=== PATIENT | male | born 1940 | race Caucasian/White ===

== ENCOUNTER 2016-06-26 08:09 | Emergency (ER) | payer MEDICARE, BC ==
[2016-06-26 08:12] VITALS: BP 153/72; PULSE 75; RESP 16; TEMP 97.6
--- NOTE | 2016-06-26 08:53 | XR ---
EXAMINATION TYPE: XR knee complete RT DATE OF EXAM: 06/26/2016 8:49 AM CLINICAL HISTORY: Right knee pain and swelling, recent fall injury. TECHNIQUE: Three views of the right knee are obtained. COMPARISON: None. FINDINGS: There is no acute fracture/dislocation evident in right knee. Asymmetric mild to moderate joint space loss medial tibiofemoral compartment is seen. There is mild spurring patellofemoral janis rtment. There is slightly more prominent spurs anteriorly in the patella. Vascular calcification in t he posterior popliteal vessels is noted. A fabella is seen. IMPRESSION: There is no acute fracture or dislocation in the right knee.
--- NOTE | 2016-06-26 09:15 | ED ---
Lower Extremity Injury HPI - General Chief Complaint: Extremity Injury, Lower Stated Complaint: right knee pain Time Seen by Provider: 06/26/16 08:32 Source: patient, RN notes reviewed Mode of arrival: ambulatory Limitations: no limitations - History of Present Illness Initial Comments: 76-year-old male presents emergency Department with chief complaint of right knee pain. Patient states that he thought he injured a few weeks ago while cleaning the toe. Patient states she's had ongoing medial knee pain. Patient states that she is swollen. Patient has not seen anybody for this. He states he is able to family but states that he has pain when he flexes and extends it. Patient states there is no clicking popping or any giving out of his knee. Patient denies any paresthesias. Patient denies any previous knee surgeries. Patient denies any blood thinners. Patient states is no bruising noted. - Related Data Home Medications Medication Instructions Recorded Confirmed Aspirin [Adult Low Dose Aspirin EC] 81 mg PO DAILY 08/27/15 06/26/16 Enalapril [Vasotec] 10 mg PO BID 08/27/15 06/26/16 Atorvastatin [Lipitor] 20 mg PO DAILY 06/26/16 06/26/16 Cholecalciferol [Vitamin D3] 1,000 unit PO DAILY 06/26/16 06/26/16 Citalopram Hydrobromide [CeleXA] 20 mg PO DAILY 06/26/16 06/26/16 Gabapentin [Neurontin] 300 mg PO TID 06/26/16 06/26/16 Nortriptyline [Pamelor] 50 mg PO HS 06/26/16 06/26/16 Allergies Allergy/AdvReac Type Severity Reaction Status Date / Time No Known Allergies Allergy Verified 06/26/16 08:29 Review of Systems ROS Statement: Those systems with pertinent positive or pertinent negative responses have been documented in the HPI. ROS Other: All systems not noted in ROS Statement are negative. Past Medical History Past Medical History: Hyperlipidemia, Hypertension Additional Past Medical History / Comment(s): hydrocephaly History of Any Multi-Drug Resistant Organisms: None Reported Additional Past Surgical History / Comment(s): brain sx Past Psychological History: No Psychological Hx Reported Smoking Status: Former smoker Past Alcohol Use History: None Reported Past Drug Use History: None Reported General Exam Limitations: no limitations General appearance: alert, in no apparent distress Respiratory exam: Present: normal lung sounds bilaterally. Absent: respiratory distress, wheezes, rales, rhonchi, stridor Cardiovascular Exam: Present: regular rate, normal rhythm, normal heart sounds. Absent: systolic murmur, diastolic murmur, rubs, gallop, clicks Extremities exam: Present: other (Right knee there is pain with full flexion and extension there is no laxity noted negative anterior posterior drawer there is moderate right knee swelling noted, there is tenderness on the medial aspect) Skin exam: Present: warm, dry, intact, normal color. Absent: rash Course Vital Signs 06/26/16 08:10 Temperature 97.6 F Pulse Rate 75 Respiratory 16 Rate Blood Pressure 153/72 O2 Sat by Pulse 95 Oximetry Medical Decision Making - Medical Decision Making 76-year-old male presented for right knee pain. Patient does not have any acute injuries noted to the osseus lesions on x-ray. Patient does have some abnormal joint space loss in the medial aspect maybe contribute to his symptoms. Patient will be referred to on-call orthopedics Dr. cMkeon for further care. Patient agrees to plan. Disposition Clinical Impression: Right knee pain Disposition: HOME SELF-CARE Condition: Stable Instructions: Knee Pain (ED), Knee Sprain (ED) Additional Instructions: Please return to the Emergency Department if symptoms worsen or any other concerns. Referrals: Filipe Beckwith MD [Primary Care Provider] - 1-2 days Aly Mckeon MD [Medical Doctor] - 1-2 days Time of Disposition: 09:14
== END 2016-06-26 09:18 | disposition home or self-care (01) ==
LOC: EC 08:09
DX: S83.91XA Sprain of unspecified site of right knee, initial encounter (principal); E78.5 Hyperlipidemia, unspecified; I10 Essential (primary) hypertension; Z87.891 Personal history of nicotine dependence; Z79.82 Long term (current) use of aspirin; Z79.899 Other long term (current) drug therapy; X50.9XXA Other and unspecified overexertion or strenuous movements or postures, initial encounter; Y93.89 Activity, other specified
CPT/HCPCS: 99283

== ENCOUNTER → 2016-06-26 | Outpatient (CLI) | payer MEDICARE, BC ==
[2016-06-26 08:16] LABS: CH 32.5; HCT 38.3 % (39.0-53.0); HDW 2.96; HGB 12.5 gm/dL (13.0-17.5); MCH 31.5 pg (25.0-35.0); MCHC 32.7 g/dL (31.0-37.0); MCV 96.3 fL (80.0-100.0); Mean Platelet Volume 7.3; RBC 3.98 m/uL (4.30-5.90); RDW 13.7 % (11.5-15.5); WBC 7.9 k/uL (3.8-10.6)
[2016-06-26 08:53] LABS: Anion Gap 14 mmol/L; Blood Urea Nitrogen 19 mg/dL (9-20); Carbon Dioxide 25 mmol/L (22-30); Chloride 104 mmol/L (98-107); Non-African American GFR(MDRD) >60 (>60 ml/min/1.73 sqM); Potassium 4.9 mmol/L (3.5-5.1); Sodium 143 mmol/L (137-145)
== END | disposition home or self-care (01) ==
LOC: LABPAT 07:46
PROVIDERS: ATTEND Internal Medicine Interventional Cardiology
DX: Z01.812 Encounter for preprocedural laboratory examination (principal); I25.10 Atherosclerotic heart disease of native coronary artery without angina pectoris
CPT/HCPCS: 80051; 82565; 84520; 85027

== ENCOUNTER 2016-07-03 06:24 | Day surgery (SDC) | payer MEDICARE, BC ==
[~2016-07-03 06:24] MED LIST: ALPRAZolam 0.25 MG TAB PO PRN; ALPRAZolam 0.5 MG TAB PO PRN; ASPIRIN 325 MG TAB PO STA; ATORVASTATIN 80 MG TAB PO STA; NITROGLYCERIN SL TABS 0.4 MG TAB SUBLINGUAL PRN; SODIUM CHLORIDE 0.9% 1,000 ML in EMPTY BAG 1 BAG IV ONE
[2016-07-03] MEDS ORDERED: LIDOCAINE 1% INJ 10MG/ML (20 ML MDV) ONE (07:11)
[2016-07-03] MEDS ORDERED: LIDOCAINE 2% INJ 20 MG/ML (20 ML MDV) ONE (07:21)
[2016-07-03] MEDS ORDERED: VERAPAMIL 2.5 MG/ML 2 ML AMP ONE (07:22)
[2016-07-03] MEDS ORDERED: SODIUM CHLORIDE 0.9% (PF) 10 ML VIAL ONE (07:22)
[2016-07-03] MEDS ORDERED: diphenhydrAMINE 50 MG/ML 1 ML VIAL ONE (07:33)
[2016-07-03] MEDS ORDERED: fentaNYL (PF) 50 MCG/ML 2 ML AMP ONE (07:33)
[2016-07-03] MEDS ORDERED: diphenhydrAMINE 50 MG/ML 1 ML VIAL IVP ONE (07:35)
[2016-07-03] MEDS ORDERED: fentaNYL (PF) 50 MCG/ML 2 ML AMP IV ONE (07:37)
[2016-07-03] MEDS ORDERED: HEPARIN SODIUM 1,000 UNIT/ML VIAL ONE (07:41)
[2016-07-03] MEDS ORDERED: LIDOCAINE 2% INJ 20 MG/ML SQ ONE (07:41)
[2016-07-03] MEDS ORDERED: VERAPAMIL SYRINGE (5 MG/10 ML) INTRAARTER ONE (07:43)
[2016-07-03] MEDS ORDERED: NITROGLYCERIN 1000MCG/10ML SYRINGE INTRAARTER ONE (07:59)
[2016-07-03] MEDS ORDERED: ADENOSINE 90 MG in SODIUM CHLORIDE 0.9% 60 ML IVP ONE (08:06)
[2016-07-03] MEDS ORDERED: BIVALIRUDIN BOLUS 250 MG/50 ML IV ONE (08:09)
[2016-07-03] MEDS ORDERED: BIVALIRUDIN 250 MG in SODIUM CHLORIDE 0.9% 50 ML IV ONE (08:09)
[2016-07-03] MEDS ORDERED: CLOPIDOGREL 75 MG TAB PO ONE (08:10)
[2016-07-03] MEDS ORDERED: CLOPIDOGREL 75 MG TAB ONE ×2 (08:11→08:12)
[2016-07-03] MEDS ORDERED: IOHEXOL 350 MG/ML 100 ML BOTTLE INJ ONE (08:42)
[2016-07-03] MEDS ORDERED: RX INFO: IV CONTRAST WAS GIVEN 1 EACH MISC MISCELLANE PRN (08:50)
[2016-07-03] MEDS ORDERED: ATROPINE SULFATE 0.1 MG/ML 10ML SYRINGE IV PRN (08:50)
[2016-07-03] MEDS ORDERED: NITROGLYCERIN SL TABS 0.4 MG TAB SUBLINGUAL PRN (08:50)
[2016-07-03] MEDS ORDERED: MAG HYDROX/AL HYDROX/SIMETH 30 ML CUP PO PRN (08:50)
[2016-07-03] MEDS ORDERED: SODIUM CHLORIDE 0.9% 1,000 ML IV SCH (09:00)
[2016-07-03] MEDS ORDERED: NAPROXEN 250 MG TAB PO PRN (09:17)
[2016-07-03] MEDS: LISINOPRIL 20 MG TAB PO SCH (13:14)
[2016-07-03] MEDS: CHOLECALCIFEROL 1,000 UNIT TAB PO SCH (13:15)
[2016-07-03] MEDS: CITALOPRAM HYDROBROMIDE 20 MG TAB PO SCH (13:15)
[2016-07-03 14:48] VITALS: BMI 29.9
--- NOTE | 2016-07-03 16:44 | PTCA ---
DATE OF SERVICE: Mr. Wick is a 76-year-old male with known history of coronary artery disease, history of hypertension, hyperlipidemia, who recently had an abnormal myocardial perfusion imaging. His cardiac catheterization showed a borderline significant lesion in the proximal LAD. In view of that, recommendation made regarding fractional flow reserve measurement and depending on that, further recommendation will be made. Those findings and recommendations were discussed with the patient and he is in full understanding and agreement. PROCEDURE: A 6 Fijian 3-1/2 Bend left Richa guiding catheter was introduced into the system. After cannulating the left main, a Doppler flow wire was introduced into the LAD, positioned distally. Following that infusion of Adenosine intravenously per protocol was performed with a fractional flow reserve of 77%. At that point a 3.0 x 18 mm Xience Alpine stent was advanced, deployed and was dilated to 16 atmospheres. Following that, the balloon was removed and a 3.5 x 12 mm NC Euphora balloon was advanced and one inflation in the proximal segment of the stent at 14 atmospheres was done. After the last inflation, after appropriate wait, the balloon and the guidewire were withdrawn back in the guiding catheter. Images were obtained and repeated. Those images reveal stable successful stenting. At that point, the guiding catheter, the balloon and the guidewire were removed. The sheath was removed. Hemostasis was obtained with deployment of a TR band. There were no immediate complications. Patient is returned to his room in stable condition. Of note, the patient received Angiomax per protocol as well as oral loading dose of Clopidogrel. He has no chest discomfort with inflations. RESULT: Successful stenting of the proximal LAD in the long segments with reduction in stenosis from 60 to 70% with a hemodynamically significant fractional flow reserve to 0%. RECOMMENDATIONS: Patient will be continued on aspirin and Plavix and CLYDE inhibitor and statin. The importance of dual antiplatelet treatment were discussed with the patient and his family who is in full understanding and agreement.
--- NOTE | 2016-07-03 16:46 | LTR ---
July 03, 2016 RE: ShamikaHerrera Dear Dr. Beckwith: I had the pleasure of performing cardiac catheterization and coronary angioplasty and stenting on Mr. Wick at [facility] on the june and a full copy of procedure note will be forwarded to you. In brief, he was found to have a borderline significant lesion in the proximal left anterior descending, the fractional flow reserve measurement showed hemodynamically significant lesion. In view of that, he received a drug-eluting stent in that segment. I am hopeful that this procedure will stabilize his status. Thank you again for allowing me to participate in his care. Please feel to call for any questions. Sincerely, JO ANN RAYMUNDO MD
--- NOTE | 2016-07-03 17:45 | CC ---
Mr. Wick is a 76-year-old man with known history of hypertension, hyperlipidemia, who has been complaining of symptoms of dyspnea on exertion, had a stress test that showed evidence of defect with impairment of left ventricular systolic function. In view of that, recommendation was made regarding cardiac catheterization. The procedure as well as risks and complications were discussed with the patient, who is in full understanding and agreement. PROCEDURE: Patient was brought to the cook house laborer in fasting semi-sedated state after receiving fentanyl and Benadryl. He was draped and prepped in conventional fashion. Using Xylocaine anesthesia as well as Seldinger technique, a 6 Malagasy sheath was introduced in the right radial artery. Selective right and left coronary angiography was performed using 5 Malagasy 3-1/2 Bend right Richa catheters. Multiple views of the coronary arteries, including hemiaxial views, were obtained. Following that, catheter was removed. Images were reviewed. Of note, the patient received 5000 units of intravenous heparin at the start of the procedure as well as intra-arterial verapamil. FINDINGS: Fluoroscopy: There is severe calcification involving the left anterior descending artery and diagonal branch and to a lesser extent the right coronary artery. Left main: This is a large-size vessel bifurcating into left circumflex, left anterior descending artery, left main coronary artery. Has no evidence of high-grade stenosis. Left anterior descending artery: This is a large-size vessel reaching toward the apex with a wraparound apex segment, giving rise to a large diagonal branch proximally. The vessel is heavily calcified proximally. The takeoff of the diagonal branch has a 60% to 70% stenosis. The LAD has about a 60% lesion that is calcified. The rest of the vessel has mild intimal disease without any high-grade stenosis. Left circumflex: This is a nondominant vessel, giving rise to 2 obtuse marginal branches. The second obtuse marginal branch in the mid segment has an eccentric 60% to 70% plaque. The ostium of the left circumflex has a plaque as well. Right coronary artery: This is a large dominant vessel with a superior takeoff, calcified in the mid segment. In the proximal segment it has a 40% plaque, distally bifurcating into PDA and posterolateral segment branches. There is no high-grade stenosis in the distal segment. LEFT VENTRICULOGRAM: Left ventriculogram was not performed. CONCLUSION: 1. Heavily calcified left anterior descending artery proximally with moderate the patient significant plaque. 2. Obstructive disease involving the first diagonal branch. 3. Evidence of moderate to significant disease in the second obtuse marginal branch. 4. Mild disease in the left anterior descending artery. 5. Calcified coronary arteries. RECOMMENDATIONS: I have recommended proceeding with fractional flow reserve evaluation of the LAD and depending on that, further recommendation will be made. Those findings and recommendations were discussed with the patient and he is in full understanding and agreement.
[2016-07-03] MEDS ORDERED: NORTRIPTYLINE 25 MG CAP PO SCH (21:00)
[2016-07-03] MEDS ORDERED: ZOLPIDEM 5 MG TAB PO PRN (21:00)
[2016-07-03 23:02] VITALS: TEMP 97.8
[2016-07-04 06:26] LABS: Anion Gap 9 mmol/L; Blood Urea Nitrogen 21 mg/dL (9-20); Calcium 9.4 mg/dL (8.4-10.2); Carbon Dioxide 29 mmol/L (22-30); Chloride 103 mmol/L (98-107); Glucose 92 mg/dL (74-99); Non-African American GFR(MDRD) 54 (>60 ml/min/1.73 sqM); Potassium 4.7 mmol/L (3.5-5.1); Sodium 141 mmol/L (137-145)
[2016-07-04] MEDS: CITALOPRAM HYDROBROMIDE 20 MG TAB PO SCH (08:11)
[2016-07-04] MEDS: LISINOPRIL 20 MG TAB PO SCH (08:11)
[2016-07-04] MEDS: CHOLECALCIFEROL 1,000 UNIT TAB PO SCH (08:12)
[2016-07-04 08:43] VITALS: BP 149/75; PULSE 88; RESP 18
[2016-07-04] MEDS ORDERED: ASPIRIN 325 MG TAB PO SCH (09:00)
[2016-07-04] MEDS ORDERED: ATORVASTATIN 40 MG TAB PO SCH (09:00)
[2016-07-04] MEDS ORDERED: CLOPIDOGREL 75 MG TAB PO SCH (09:00)
--- NOTE | 2016-07-04 09:24 | PN ---
Mr. Wick is a 76-year-old male with a known history of coronary artery disease who had an abnormal myocardial perfusion imaging underwent a cardiac catheterization that revealed a borderline significant lesion in the LAD. Underwent fractional flow reserve measurement that was significant and stenting of the LAD. He is doing well this morning, ambulating without difficulty. Denying any chest pain. No dizziness. No palpitation. No nausea. Continues to be on aspirin once a day, Lipitor 40 mg daily, Plavix 75 mg daily, lisinopril 40 mg daily. PHYSICAL EXAMINATION: Blood pressure running in the 130s to 150s with the heart rate in the70s. LUNGS: Clear. HEART: Regular rate and rhythm. S1, S2, no S3 with systolic ejection murmur 2/6 heard at the base. No diastolic murmur. No rub. ABDOMEN: Soft, nontender. EXTREMITIES: No edema. Right radial pulse intact. EKG revealed sinus mechanism with left bundle branch block. BUN and creatinine 21 and 1.28. IMPRESSION: 1. Status post coronary angiography and stenting of the left anterior descending artery. 2. Hypertension. 3. Left bundle branch block. 4. Hyperlipidemia. RECOMMENDATIONS: Patient will be discharged home today and followed as an outpatient.
== END 2016-07-04 09:15 | disposition home or self-care (01) ==
LOC: CATHCVL 06:24 → 6SEL 08:36 → CATHCVL 07-04 09:15
PROVIDERS: ATTEND Internal Medicine Interventional Cardiology
DX: I25.10 Atherosclerotic heart disease of native coronary artery without angina pectoris (principal); I25.84 Coronary atherosclerosis due to calcified coronary lesion; I44.7 Left bundle-branch block, unspecified; I10 Essential (primary) hypertension; E78.2 Mixed hyperlipidemia; I73.9 Peripheral vascular disease, unspecified; Z82.49 Family history of ischemic heart disease and other diseases of the circulatory system; Z79.82 Long term (current) use of aspirin; Z79.899 Other long term (current) drug therapy
CPT/HCPCS: 93571; 93454; 80048; 99152; 99153 ×3; C9600; C1887; C1725 ×2; C1769; C1874; J2001; J1200; Q9967; J3010; J0583; J0153; J1644

== ENCOUNTER → 2017-10-02 | Outpatient (CLI) | payer MEDICARE, BC ==
--- NOTE | 2017-10-02 15:26 | ECHOF ---
Referral Reason:I35.0 Nonrheumatic aortic (valve) stenosis MEASUREMENTS -------- HEIGHT: 182.9 cm WEIGHT: 97.5 kg BP: RVIDd: 3.0 cm (< 3.3) IVSd: 1.2 cm (0.6 - 1.1) LVIDd: 4.4 cm (3.9 - 5.3) LVPWd: 1.1 cm (0.6 - 1.1) IVSs: 1.4 cm LVIDs: 4.3 cm LVPWs: 1.3 cm LAESV Index (A-L): 39.27 ml/m Ao Diam: 3.0 cm (2.0 - 3.7) AV Cusp: 1.2 cm (1.5 - 2.6) LA Diam: 4.3 cm (2.7 - 3.8) MV EXCURSION: 15.618 mm (> 18.000) MV EF SLOPE: 81 mm/s (70 - 150) EPSS: 0.9 cm MV E Joaquin: 0.55 m/s MV DecT: 262 ms MV A Joaquin: 0.73 m/s MV E/A Ratio: 0.76 AV maxP.49 mmHg AV meanP.07 mmHg RAP: 5.00 mmHg RVSP: 35.32 mmHg FINDINGS -------- Sinus rhythm with extra systolic beats. This was a technically adequate study. The left ventricular size is normal. There is mild concentric left ventricular hypertrophy. Overa ll left ventricular systolic function is normal with, an EF between 55 - 60 %. The right ventricle is normal in size. The left atrium is mildly dilated. LA is moderately dilated 34-39 ml/m2 The right atrial size is normal. There is mild to moderate aortic valve sclerosis. There is moderate aortic stenosis present. Peak /mean gradient across the Aortic Valve is 37.49mmHg / 20.07mmHg. Mild mitral annular calcification present. Mild mitral regurgitation is present. Mild tricuspid regurgitation present. There is mild pulmonary hypertension. The right ventricular systolic pressure, as measured by Doppler, is 35.32mmHg. Trace/mild (physiologic) pulmonic regurgitation. The aortic root size is normal. There is no pericardial effusion. CONCLUSIONS -------- 1. The left ventricular size is normal. 2. There is mild concentric left ventricular hypertrophy. 3. Overall left ventricular systolic function is normal with, an EF between 55 - 60 %. 4. The left atrium is mildly dilated. 5. LA is moderately dilated 34-39 ml/m2 6. There is mild to moderate aortic valve sclerosis. 7. There is moderate aortic stenosis present. 8. Peak/mean gradient across the Aortic Valve is 37.49mmHg / 20.07mmHg. 9. Mild mitral annular calcification present. 10. Mild mitral regurgitation is present. 11. Mild tricuspid regurgitation present. 12. There is mild pulmonary hypertension. 13. The right ventricular systolic pressure, as measured by Doppler, is 35.32mmHg. 14. Trace/mild (physiologic) pulmonic regurgitation. 15. The aortic root size is normal. 16. There is no pericardial effusion. CLERICAL RECEPTIONIST: Stephany Garcia RDCS
== END ==
LOC: RADECHMAIN 13:05
PROVIDERS: ATTEND Internal Medicine
DX: I08.1 Rheumatic disorders of both mitral and tricuspid valves (principal); I27.20 Pulmonary hypertension, unspecified
CPT/HCPCS: 93306

== ENCOUNTER 2017-11-26 11:15 | Emergency (ER) | payer MEDICARE, BC ==
[2017-11-26 11:40] VITALS: BP 140/59; PULSE 56; RESP 18; TEMP 97.8
[2017-11-26] MEDS ORDERED: DIPH,PERTUS(ACELL)TETVAC-LF 0.5 ML VIAL IM ONE (12:06)
[2017-11-26] MEDS ORDERED: GELATIN SPONGE,ABSORB (SMALL) 1 EACH SPONGE TOPICAL STA (12:14)
--- NOTE | 2017-11-26 12:19 | ED ---
General Adult HPI - General Chief complaint: Wound/Laceration Stated complaint: Leg Lac Time Seen by Provider: 11/26/17 12:04 Source: patient, RN notes reviewed Mode of arrival: ambulatory Limitations: no limitations - History of Present Illness Initial comments: 89-year-old male presents to the emergency department for a chief complaint of scratch on left lower leg. Patient states he was scratching his leg when it started to bleed. Patient states he could not get it to stop bleeding. Patient denies any other injuries. Patient states he is taking Plavix. Patient denies any dizziness, shortness of breath, or chest pain. Patient states this happened about 2 hours ago. Patient has no other complaints at this time including shortness of breath, chest pain, abdominal pain, nausea or vomiting, headache, or visual changes. - Related Data Home Medications Medication Instructions Recorded Confirmed Aspirin [Adult Low Dose Aspirin EC] 81 mg PO DAILY 08/27/15 07/03/16 Cholecalciferol [Vitamin D3] 1,000 unit PO DAILY 06/26/16 07/03/16 Citalopram Hydrobromide [CeleXA] 20 mg PO DAILY 06/26/16 07/03/16 Nortriptyline [Pamelor] 50 mg PO HS 06/26/16 07/03/16 Naproxen Sodium [Aleve] 220 mg PO DAILY 07/01/16 07/03/16 Acetaminophen Tab [Tylenol Tab] 650 mg PO Q6H PRN 07/03/16 07/03/16 Previous Rx's Medication Instructions Recorded Atorvastatin [Lipitor] 40 mg PO DAILY #30 tab 07/03/16 Clopidogrel [Plavix] 75 mg PO DAILY #30 tab 07/03/16 Lisinopril [Zestril] 40 mg PO DAILY #30 tab 07/03/16 Nitroglycerin Sl Tabs [Nitrostat] 0.4 mg SUBLINGUAL Q5M PRN #25 tab 07/03/16 Allergies Allergy/AdvReac Type Severity Reaction Status Date / Time No Known Allergies Allergy Verified 07/01/16 13:25 Review of Systems ROS Statement: Those systems with pertinent positive or pertinent negative responses have been documented in the HPI. ROS Other: All systems not noted in ROS Statement are negative. Past Medical History Past Medical History: CVA/TIA, Hyperlipidemia, Hypertension Additional Past Medical History / Comment(s): hydrocephaly, TIA long time ago, leaky heart valve, poor circulation, swelling rt lower leg History of Any Multi-Drug Resistant Organisms: None Reported Additional Past Surgical History / Comment(s): brain surgery for hydrocephalus with shunt/ shunt later removed Past Anesthesia/Blood Transfusion Reactions: No Reported Reaction Past Psychological History: Depression Smoking Status: Former smoker Past Alcohol Use History: None Reported Past Drug Use History: None Reported - Past Family History Father Family Medical History: Cancer Additional Family Medical History / Comment(s): lung General Exam Limitations: no limitations General appearance: alert, in no apparent distress Head exam: Present: atraumatic, normocephalic, normal inspection Eye exam: Present: normal appearance ENT exam: Present: mucous membranes moist Neck exam: Present: normal inspection, full ROM. Absent: tenderness, meningismus Respiratory exam: Present: normal lung sounds bilaterally. Absent: respiratory distress, wheezes, rales, rhonchi, stridor Cardiovascular Exam: Present: regular rate, normal rhythm, normal heart sounds. Absent: systolic murmur, diastolic murmur, rubs, gallop, clicks Extremities exam: Present: full ROM (Full range of motion of the left lower extremity including ankle and knee.), normal capillary refill (Capillary refill less than 2 seconds and pedal pulse 2+ in the left lower extremity), other ( Sensation intact and left lower extremity. There is a 0.5 cm x 0.5 cm shallow avulsion of the epidermis over left amanda. Bleeding somewhat controlled at this point.). Absent: tenderness (No tenderness to the left lower extremity), calf tenderness (No tenderness in the left calf. Negative Homans sign.) Course Vital Signs 11/26/17 11:37 Temperature 97.8 F Pulse Rate 56 L Respiratory 18 Rate Blood Pressure 140/59 O2 Sat by Pulse 94 L Oximetry Medical Decision Making - Medical Decision Making 77-year-old male presents to the emergency department for a chief complaint of bleeding from the left lower extremity. Patient scratched himself and caused a small avulsion of the superficial skin about 0.5 cm x 0.5 cm. Patient has very minor bleeding. Patient takes Plavix. This happened about 2 hours ago. Vitals within normal limits. Patient has full range of motion and neurovascular intact in the left lower extremity. Gelfoam gauze and pressure wrapping was applied and bleeding is now controlled. Patient was educated to take dressing off tomorrow and let Gelfoam fall off on its own. He will monitor for signs of infection and return if these occur. He will return to the emergency department if he has any worsening symptoms. He will follow up with primary care in 1-2 days. Disposition Clinical Impression: Scratch of lower leg Disposition: HOME SELF-CARE Condition: Good Instructions: Laceration (ED) Additional Instructions: Please take dressing off tomorrow and let Gelfoam fall off on its own. Please monitor for signs of infection such as spreading redness, streaking redness, drainage, or fever and return if these occur. Otherwise follow-up with primary care in 1-2 days. Is patient prescribed a controlled substance at d/c from ED?: No Referrals: Filipe Beckwith MD [Primary Care Provider] - 1-2 days Time of Disposition: 12:50
== END 2017-11-26 13:18 | disposition home or self-care (01) ==
LOC: EC 11:15
DX: S81.802A Unspecified open wound, left lower leg, initial encounter (principal); F32.9 Major depressive disorder, single episode, unspecified; Z87.891 Personal history of nicotine dependence; Z79.1 Long term (current) use of non-steroidal anti-inflammatories (NSAID); Z79.02 Long term (current) use of antithrombotics/antiplatelets; Z79.82 Long term (current) use of aspirin; Z79.899 Other long term (current) drug therapy; Z86.79 Personal history of other diseases of the circulatory system; Z23 Encounter for immunization; X58.XXXA Exposure to other specified factors, initial encounter
CPT/HCPCS: 90471; 90715; 99282

== ENCOUNTER 2020-12-18 14:43 | Observation (INO) | payer MEDICARE, BC ==
[2020-12-18] MEDS ORDERED: AMPICILLIN-SULBACTAM 3 GM in SODIUM CHLORIDE 0.9% 100 ML IVPB STA (15:24)
--- NOTE | 2020-12-18 15:26 | ED ---
General Adult HPI - General Chief complaint: Recheck/Abnormal Lab/Rx Stated complaint: dehydration,Cat bite Time Seen by Provider: 12/18/20 14:55 Source: patient, RN notes reviewed, old records reviewed Mode of arrival: ambulatory Limitations: no limitations - History of Present Illness Initial comments: This is a 80-year-old male who resents to the emergency department complaining of cat bite to his right hand since Thursday and hands become more swollen and tender. Patient also had some baseline blood work done at his primary medical care doctor's office and was told to come to the emergency department because his kidney functions off as well as his potassium is elevated. Patient himself states that he has not felt any different over the last few days. Patient denies any current chest pain difficulty breathing shortness of breath per cristofer ent denies any recent fever chills or cough. Patient denies any lightheadedness dizziness. Patient denies headache patient denies numbness weakness. She denies any abdominal pain patient denies nausea vomiting diarrhea. Patient's complaint of some chronic back pain which is being worked up by his primary medical care doctor. Patient denies any tissue hematuria urinary frequency. Patient's main complaint aside from the abnormal lab work is his swollen right hand secondary to a cat bite. Cat is there Does have - Related Data Home Medications Medication Instructions Recorded Confirmed Aspirin [Adult Low Dose Aspirin EC] 81 mg PO DAILY 08/27/15 12/18/20 Cholecalciferol [Vitamin D3 (25 2,000 unit PO HS 06/26/16 12/18/20 Mcg = 1000 Iu)] Citalopram Hydrobromide [CeleXA] 20 mg PO DAILY 06/26/16 12/18/20 Nortriptyline [Pamelor] 50 mg PO HS 06/26/16 12/18/20 Atorvastatin [Lipitor] 20 mg PO DAILY 11/26/17 12/18/20 Acetaminophen Tab [Tylenol] 500 mg PO Q6HR PRN 12/18/20 12/18/20 Previous Rx's Medication Instructions Recorded Nitroglycerin Sl Tabs [Nitrostat] 0.4 mg SUBLINGUAL Q5M PRN #25 tab 07/03/16 Amoxicillin/Potassium Clav 1 tab PO Q12HR 8 Days #16 tab 12/20/20 [Augmentin 500-125 Tablet] Allergies Allergy/AdvReac Type Severity Reaction Status Date / Time No Known Allergies Allergy Verified 12/18/20 16:49 Review of Systems ROS Statement: Those systems with pertinent positive or pertinent negative responses have been documented in the HPI. ROS Other: All systems not noted in ROS Statement are negative. Past Medical History Past Medical History: CVA/TIA, Hyperlipidemia, Hypertension Additional Past Medical History / Comment(s): hydrocephaly, TIA long time ago, leaky heart valve, poor circulation, swelling rt lower leg History of Any Multi-Drug Resistant Organisms: None Reported Additional Past Surgical History / Comment(s): brain surgery for hydrocephalus with shunt/ shunt later removed Past Anesthesia/Blood Transfusion Reactions: No Reported Reaction Past Psychological History: Depression Smoking Status: Former smoker Past Alcohol Use History: None Reported Past Drug Use History: None Reported - Past Family History Father Family Medical History: Cancer Additional Family Medical History / Comment(s): lung General Exam - General Exam Comments Initial Comments: GENERAL: Patient is well-developed and well-nourished. Patient is nontoxic and well- hydrated and is in mild distress. ENT: Neck is soft and supple. No significant lymphadenopathy is noted. Oropharynx is clear. Moist mucous membranes. Neck has full range of motion without eliciting any pain. EYES: The sclera were anicteric and conjunctiva were pink and moist. Extraocular movements were intact and pupils were equal round and reactive to light. Eyelids were unremarkable. PULMONARY: Unlabored respirations. Good breath sounds bilaterally. No audible rales rhonchi or wheezing was noted. CARDIOVASCULAR: There is a regular rate and rhythm without any murmurs gallops or rubs. ABDOMEN: Soft and nontender with normal bowel sounds. SKIN: Right hand is swollen on the posterior aspects tender to touch and erythematous.. NEUROLOGIC: Patient is alert and oriented x3. Cranial nerves II through XII are grossly intact. Motor and sensory are also intact. Normal speech, volume and content. Symmetrical smile. MUSCULOSKELETAL: Normal extremities with adequate strength and full range of motion. LYMPHATICS: No significant lymphadenopathy is noted PSYCHIATRIC: Normal psychiatric evaluation. Limitations: no limitations Course Vital Signs 12/18/20 12/18/20 12/18/20 14:55 19:16 22:00 Temperature 98 F Pulse Rate 64 60 60 Respiratory 16 18 16 Rate Blood Pressure 102/59 129/57 120/53 O2 Sat by Pulse 97 98 98 Oximetry 12/18/20 22:44 Temperature 98.0 F Pulse Rate 62 Respiratory 18 Rate Blood Pressure 102/62 O2 Sat by Pulse 98 Oximetry Medical Decision Making - Medical Decision Making EKG shows sinus bradycardia with occasional PVC at 56 bpm VT interval 176 QRS is 156 QT intervals 476 QTC is 459. Patient's EKG shows a left bundle branch block. - Lab Data Result diagrams: 12/19/20 04:36 12/20/20 12:02 Lab Results 12/18/20 12/18/20 12/18/20 Range/Units 15:47 15:47 15:47 WBC 9.1 (3.8-10.6) k/uL RBC 3.21 L (4.30-5.90) m/uL Hgb 10.5 L (13.0-17.5) gm/dL Hct 30.5 L (39.0-53.0) % MCV 94.8 (80.0-100.0) fL MCH 32.7 (25.0-35.0) pg MCHC 34.5 (31.0-37.0) g/dL RDW 13.8 (11.5-15.5) % Plt Count 356 (150-450) k/uL MPV 6.8 Neutrophils % 74 % Lymphocytes % 15 % Monocytes % 6 % Eosinophils % 3 % Basophils % 0 % Neutrophils # 6.7 (1.3-7.7) k/uL Lymphocytes # 1.4 (1.0-4.8) k/uL Monocytes # 0.5 (0-1.0) k/uL Eosinophils # 0.2 (0-0.7) k/uL Basophils # 0.0 (0-0.2) k/uL Sodium 135 L (137-145) mmol/L Potassium 5.2 H (3.5-5.1) mmol/L Chloride 109 H (98-107) mmol/L Carbon Dioxide 16 L (22-30) mmol/L Anion Gap 10 mmol/L BUN 28 H (9-20) mg/dL Creatinine 1.96 H (0.66-1.25) mg/dL Est GFR (CKD-EPI)AfAm 36 (>60 ml/min/1.73 sqM) Est GFR (CKD-EPI)NonAf 31 (>60 ml/min/1.73 sqM) Glucose 98 (74-99) mg/dL Plasma Lactic Acid Сергей (0.7-2.0) mmol/L Calcium 9.5 (8.4-10.2) mg/dL Total Bilirubin 0.3 (0.2-1.3) mg/dL AST 19 (17-59) U/L ALT 14 (4-49) U/L Alkaline Phosphatase 96 (38-126) U/L Total Protein 7.0 (6.3-8.2) g/dL Albumin 4.1 (3.5-5.0) g/dL Urine Color Yellow Urine Appearance Clear (Clear) Urine pH 5.0 (5.0-8.0) Ur Specific Gordon 1.013 (1.001-1.035) Urine Protein Negative (Negative) Urine Glucose (UA) Negative (Negative) Urine Ketones Negative (Negative) Urine Blood Negative (Negative) Urine Nitrite Negative (Negative) Urine Bilirubin Negative (Negative) Urine Urobilinogen <2.0 (<2.0) mg/dL Ur Leukocyte Esterase Negative (Negative) 12/18/20 Range/Units 15:47 WBC (3.8-10.6) k/uL RBC (4.30-5.90) m/uL Hgb (13.0-17.5) gm/dL Hct (39.0-53.0) % MCV (80.0-100.0) fL MCH (25.0-35.0) pg MCHC (31.0-37.0) g/dL RDW (11.5-15.5) % Plt Count (150-450) k/uL MPV Neutrophils % % Lymphocytes % % Monocytes % % Eosinophils % % Basophils % % Neutrophils # (1.3-7.7) k/uL Lymphocytes # (1.0-4.8) k/uL Monocytes # (0-1.0) k/uL Eosinophils # (0-0.7) k/uL Basophils # (0-0.2) k/uL Sodium (137-145) mmol/L Potassium (3.5-5.1) mmol/L Chloride (98-107) mmol/L Carbon Dioxide (22-30) mmol/L Anion Gap mmol/L BUN (9-20) mg/dL Creatinine (0.66-1.25) mg/dL Est GFR (CKD-EPI)AfAm (>60 ml/min/1.73 sqM) Est GFR (CKD-EPI)NonAf (>60 ml/min/1.73 sqM) Glucose (74-99) mg/dL Plasma Lactic Acid Сергей 1.5 (0.7-2.0) mmol/L Calcium (8.4-10.2) mg/dL Total Bilirubin (0.2-1.3) mg/dL AST (17-59) U/L ALT (4-49) U/L Alkaline Phosphatase (38-126) U/L Total Protein (6.3-8.2) g/dL Albumin (3.5-5.0) g/dL Urine Color Urine Appearance (Clear) Urine pH (5.0-8.0) Ur Specific Gordon (1.001-1.035) Urine Protein (Negative) Urine Glucose (UA) (Negative) Urine Ketones (Negative) Urine Blood (Negative) Urine Nitrite (Negative) Urine Bilirubin (Negative) Urine Urobilinogen (<2.0) mg/dL Ur Leukocyte Esterase (Negative) Disposition Clinical Impression: Cat bite, Renal insufficiency, Cellulitis Disposition: ADMITTED IP TO THIS HOSP Condition: Stable
[2020-12-18 16:01] LABS: Basophils % (A) 0 %; Eosinophils # (A) 0.2 k/uL (0-0.7); Eosinophils % (A) 3 %; HCT 30.5 % (39.0-53.0); HGB 10.5 gm/dL (13.0-17.5); Lymphocytes # (A) 1.4 k/uL (1.0-4.8); Lymphocytes % (A) 15 %; MCH 32.7 pg (25.0-35.0); MCHC 34.5 g/dL (31.0-37.0); MCV 94.8 fL (80.0-100.0); Mean Platelet Volume 6.8; Monocytes # (A) 0.5 k/uL (0-1.0); Monocytes % (A) 6 %; Neutrophils # (A) 6.7 k/uL (1.3-7.7); Neutrophils % (A) 74 %; Platelet Count 356 k/uL (150-450); RBC 3.21 m/uL (4.30-5.90); RDW 13.8 % (11.5-15.5); WBC 9.1 k/uL (3.8-10.6)
[2020-12-18 16:06] LABS: Albumin 4.1 g/dL (3.5-5.0); Calcium 9.5 mg/dL (8.4-10.2); Potassium 5.2 mmol/L (3.5-5.1); Total Bilirubin 0.3 mg/dL (0.2-1.3)
--- NOTE | 2020-12-18 16:12 | XR ---
EXAMINATION TYPE: XR hand complete RT DATE OF EXAM: 12/18/2020 COMPARISON: NONE HISTORY: 80-year-old male pain, redness and swelling after cat bite TECHNIQUE: 3 views FINDINGS: Generalized soft tissue swelling of the hand. Vascular calcifications. A couple small 2 mm loose bodi es within the volar aspect of the wrist. No acute fracture, subluxation, dislocation seen. No retaine d radiopaque foreign body seen. IMPRESSION: Generalized soft tissue swelling. Vascular calcifications suggest underlying diabetes and/or chronic kidney disease. No acute osseous abnormality seen.
[2020-12-18] MEDS ORDERED: SODIUM CHLORIDE 0.9% 1,000 ML IV ONE (17:38)
[2020-12-18] MEDS ORDERED: AMPICILLIN-SULBACTAM 3 GM in SODIUM CHLORIDE 0.9% 100 ML IVPB SCH (18:00)
[2020-12-18 18:03] LABS: Appearance,Urine Clear (Clear); Color,Urine Yellow; Protein,Urine Negative (Negative); Specific Gravity,Urine 1.013 (1.001-1.035)
[2020-12-18 18:04] LABS: Bilirubin,Urine Negative (Negative); Blood,Urine Negative (Negative); Glucose,Urine (UA) Negative (Negative); Ketones,Urine Negative (Negative); Leukocyte Esterase,Urine Negative (Negative); Nitrite,Urine Negative (Negative); Urobilinogen,Urine <2.0 mg/dL (<2.0)
--- NOTE | 2020-12-18 22:05 | P.HPIM ---
History of Present Illness H&P Date: 12/18/20 80-year-old male with a PMH of hypertension, hyperlipidemia, and history of CVA who presented to the emergency room with right hand pain after a cat bite. The patient reports that he was feeding one of his multiple cats when one of them bit him on his right hand this past Thursday. He reports that he did not seek any medical attention for the bite and did not think much of it until it started becoming swollen and painful yesterday. He reports gradually worsening pain, erythema, and swelling of the right hand. He denies pain of the arm or forearm. Further denied fever. Denies chest pain, shortness of breath, cough. Denied nausea, vomiting, abdominal pain, diarrhea. The patient did report a small decrease in his appetite but notes that he continues to drink several glasses of water a day. Furthermore, the patient underwent routine blood workup ordered by his primary care physician on 12/06 which revealed hyperkalemia and acute kidney injury, for which he was advised to go in to the emergency room. The patient underwent an extensive evaluation in the emergency room with a R hand x-ray that revealed overlying swelling. Laboratory evaluation revealed hemoglobin of 10.5, sodium 135, potassium 5.2, chloride 109, CO2 16, BUN 28, and creatinine 1.96. Review of systems: Pertinent positives and negatives as discussed in HPI, a complete review of systems was performed and all other systems are negative. Physical examination: General: non toxic, no distress, appears at stated age, overweight Derm: Right hand dorsum 1 cm circular ulcer with surrounding erythema and swelling, no extension to the wrist, no unusual ecchymoses, warm, dry Head: atraumatic, normocephalic, symmetric Eyes: EOMI, no lid lag, anicteric sclera, pupils equal round reactive to light ENT: Nose and ears atraumatic, no thrush, no pharyngeal erythema Neck: No thyromegaly, no cervical lymphadenopathy, trachea midline, supple Mouth: no lip lesion, mucus membranes moist Cardiovascular: S1S2 reg, grade 4 systolic murmur appreciated, positive posterior tibial pulse bilateral, no edema, capillary refill less than 2 seconds Lungs: CTA bilateral, no rhonchi, no rales , no accessory muscle use Abdominal: soft, nontender to palpation, no guarding, no appreciable organomegaly, normal bowel sounds Ext: no gross muscle atrophy, muscle strength 5 out of 5 in all 4 extremities grossly, no contractures, Neuro: CN II-XI grossly intact, light touch intact all 4 extremities, finger to nose within normal limits, Psych: Alert, oriented, appropriate affect Assessment/plan R hand cellulitis secondary to cat bite -C/w Unasyn -Follow up blood cultures -Continue with IV fluids -Area marked Acute kidney injury and chronic kidney disease -Unclear etiology -Continue IV fluids -Monitor for now Hyperkalemia, likely due to acute kidney injury -Obtain EKG -Monitor for now Chronic conditions: Hypertension, hyperlipidemia, hx of CVA -Continue with home meds DVT prophylaxis -Heparin subq The patient is admitted with an anticipated less than 2 midnight stay for evaluation of cat bite. CODE STATUS:Full Code Discussed with: Patient Anticipated discharge date: in am Anticipated discharge place: Home Past Medical History Past Medical History: CVA/TIA, Hyperlipidemia, Hypertension Additional Past Medical History / Comment(s): hydrocephaly, TIA long time ago, leaky heart valve, poor circulation, swelling rt lower leg History of Any Multi-Drug Resistant Organisms: None Reported Additional Past Surgical History / Comment(s): brain surgery for hydrocephalus with shunt/ shunt later removed Past Anesthesia/Blood Transfusion Reactions: No Reported Reaction Past Psychological History: Depression Smoking Status: Former smoker Past Alcohol Use History: None Reported Past Drug Use History: None Reported - Past Family History Father Family Medical History: Cancer Additional Family Medical History / Comment(s): lung Medications and Allergies Home Medications Medication Instructions Recorded Confirmed Type Aspirin [Adult Low Dose Aspirin EC] 81 mg PO DAILY 08/27/15 12/18/20 History Cholecalciferol [Vitamin D3] 2,000 unit PO HS 06/26/16 12/18/20 History Citalopram Hydrobromide [CeleXA] 20 mg PO DAILY 06/26/16 12/18/20 History Nortriptyline [Pamelor] 50 mg PO HS 06/26/16 12/18/20 History Nitroglycerin Sl Tabs [Nitrostat] 0.4 mg SUBLINGUAL Q5M PRN #25 tab 07/03/16 12/18/20 Rx Atorvastatin [Lipitor] 20 mg PO DAILY 11/26/17 12/18/20 History Acetaminophen Tab [Tylenol Tab] 500 mg PO Q6HR PRN 12/18/20 12/18/20 History Allergies Allergy/AdvReac Type Severity Reaction Status Date / Time No Known Allergies Allergy Verified 12/18/20 16:49 Physical Exam Vitals: Vital Signs Temp Pulse Resp BP Pulse Ox 12/18/20 19:16 60 18 129/57 98 12/18/20 14:55 98 F 64 16 102/59 97 Intake and Output 12/18/20 12/18/20 12/18/20 06:59 14:59 22:59 Other: Weight 102.512 kg Results CBC & Chem 7: 12/18/20 15:47 12/18/20 15:47 Labs: Abnormal Lab Results - Last 24 Hours (Table) 12/18/20 12/18/20 Range/Units 15:47 15:47 RBC 3.21 L (4.30-5.90) m/uL Hgb 10.5 L (13.0-17.5) gm/dL Hct 30.5 L (39.0-53.0) % Sodium 135 L (137-145) mmol/L Potassium 5.2 H (3.5-5.1) mmol/L Chloride 109 H (98-107) mmol/L Carbon Dioxide 16 L (22-30) mmol/L BUN 28 H (9-20) mg/dL Creatinine 1.96 H (0.66-1.25) mg/dL
[2020-12-18] MEDS: AMPICILLIN-SULBACTAM 3 GM in SODIUM CHLORIDE 0.9% 100 ML IVPB SCH (23:52)
[2020-12-19] MEDS: HEPARIN SODIUM,PORCINE/PF 5,000 UNIT/0.5 ML SYRINGE SQ SCH ×3 (00:05→16:46)
[2020-12-19] MEDS: AMPICILLIN-SULBACTAM 3 GM in SODIUM CHLORIDE 0.9% 100 ML IVPB SCH ×4 (05:13→22:22)
[2020-12-19] MEDS: ASPIRIN 81 MG PO SCH (08:05)
[2020-12-19] MEDS: ATORVASTATIN 20 MG TAB PO SCH (08:05)
[2020-12-19] MEDS: CITALOPRAM HYDROBROMIDE 20 MG TAB PO SCH (08:05)
[2020-12-19] MEDS: HYDROcodone/APAP 5-325MG 1 EACH TAB PO PRN ×4 (08:23→21:02)
[2020-12-19 10:25] LABS: HCT 30.9 % (39.6-50.0); MCH 32.1 pg (27.0-32.0); MCHC 32.4 g/dL (32.0-37.0); Mean Platelet Volume 10.4 fL (9.5-12.2); Platelet Count 337 X 10*3/uL (140-440); RBC 3.12 X 10*6/uL (4.40-5.60); RDW 13.7 % (11.5-14.5); WBC 8.99 X 10*3/uL (4.50-10.00)
[2020-12-19 11:09] LABS: African American GFR (CKD) 39.7 (60.0-200.0); Anion Gap 9.9 mmol/L (4.00-12.00); BUN/Creat Ratio 17.22 Ratio (12.00-20.00); Calcium 9.4 mg/dL (8.7-10.3); Carbon Dioxide 21.1 mmol/L (21.6-31.8); Non-African American GFR(CKD) 34.3 (60.0-200.0)
--- NOTE | 2020-12-19 15:05 | P.PN ---
Subjective Progress Note Date: 12/19/20 Hospital course: Patient is a very pleasant 80-year-old male with a past medical history of CVA, hypertension, and hyperlipidemia. Patient presented to the hospital and with a chief complaint of right hand pain and swelling after being bitten by his cat a couple days prior. Patient diagnosed with right hand cellulitis and acute kidney injury after absent revealing BUN 28, creatinine 1.96, and GFR of 31 with a baseline creatinine of 1.5. X-ray right hand revealing generalized soft tissue swelling with vascular calcifications suggesting underlying diabetes or chronic kidney disease with no osseous abnormalities seen. Patient admitted under our services and started on IV antibiotic Unasyn along with IV fluids for gentle hydration for treatment of ISATU. Physical exam: Patient seen and fully evaluated at the bedside. Patient continues to have moderate swelling and erythema of posterior surface of right hand. Patient does report significant decrease in redness and swelling from initial presentation upon arrival yesterday evening. Plan to continue IV antibiotics with Unasyn 1 day and likely discharge home tomorrow on oral antibiotics if patient continues to show improvement. Patient denies numbness or tingling of his right hand or decreased range of motion. He also denies having any fever, chills, headache, lightheadedness, dizziness, chest pain, palpitations, shortness of breath, or an y other complaints or concerns at this time. Vital signs reviewed and stable. General: Nontoxic, no distress and appears stated age. Derm: Skin warm and dry, moderate swelling and erythema to posterior surface of right hand, no drainage present. Head: Atraumatic, normocephalic and symmetric. Eyes: EOMs intact, no lid lag, and anicteric sclera Mouth: no lip lesions, mucus membranes moist Cardiovascular: regular rate and rhythm with normal S1S2, no murmur, positive posterior tibial pulses bilaterally, and cap refill < 2 seconds. Lungs: Respirations even, regular, and unlabored on room air. Lungs CTA bilaterally, no rhonchi, no rales, no wheezing, and no accessory muscle usage. Abdominal: soft, nontender to palpation, no guarding, no appreciable organomegaly Ext: ROM intact. No gross muscle atrophy, no edema, no contractures Neuro: Speech clear, face symmetrical and CN II-XII grossly intact with no noted focal neuro deficits Psych: Alert and oriented to person, place, time, and situation. Appropriate and pleasant affect. Assessment and Plan of Care: Cellulitis of right hand secondary to cat bite -Continue IV antibiotics with Unasyn -X-ray right hand revealing generalized soft tissue swelling with vascular ca lcifications suggesting underlying diabetes or chronic kidney disease with no osseous abnormalities seen. -Patient does report significant decrease in redness and swelling from initial presentation upon arrival yesterday evening. Plan to continue IV antibiotics with Unasyn 1 day and likely discharge home tomorrow on oral antibiotics if patient continues to show improvement. -Symptomatic care and pain management. Acute kidney injury -Currently, BUN 31.0, creatinine 1.8, and GFR 34.3. Baseline creatinine 1.5. -Continue hydration with IV fluids and monitor renal function closely with repeat a.m. labs. CODE STATUS: Full code DVT prophylaxis: Heparin Discussed with: Patient and RN Anticipated discharge date: Likely tomorrow morning Anticipated discharge place: Home A total of 45 minutes was spent on the care of this complex patient more than 50% of the time was spent in counseling and care coordination. Objective - Vital Signs Vital signs: Vital Signs Temp 97.7 F 12/19/20 07:00 Pulse 54 L 12/19/20 07:00 Resp 18 12/19/20 07:00 BP 133/64 12/19/20 07:00 Pulse Ox 100 12/19/20 07:00 Intake & Output 12/18/20 12/19/20 12/19/20 18:59 06:59 18:59 Weight 102.512 kg 102.512 kg Other: Voiding Method Toilet Toilet # Voids 1 - Labs CBC & Chem 7: 12/19/20 04:36 12/19/20 04:36 Labs: Abnormal Lab Results - Last 24 Hours (Table) 12/18/20 12/18/20 12/19/20 Range/Units 15:47 15:47 04:36 RBC 3.21 L 3.12 L (4.30-5.90) m/uL Hgb 10.5 L 10.0 L (13.0-17.5) gm/dL Hct 30.5 L 30.9 L (39.0-53.0) % MCV 99.0 H (80.0-97.0) fL MCH 32.1 H (27.0-32.0) pg Sodium 135 L (137-145) mmol/L Potassium 5.2 H (3.5-5.1) mmol/L Chloride 109 H (98-107) mmol/L Carbon Dioxide 16 L (22-30) mmol/L BUN 28 H (9-20) mg/dL Creatinine 1.96 H (0.66-1.25) mg/dL Est GFR (CKD-EPI)AfAm (60.0-200.0) Est GFR (CKD-EPI)NonAf (60.0-200.0) 12/19/20 Range/Units 04:36 RBC (4.30-5.90) m/uL Hgb (13.0-17.5) gm/dL Hct (39.0-53.0) % MCV (80.0-97.0) fL MCH (27.0-32.0) pg Sodium (137-145) mmol/L Potassium (3.5-5.1) mmol/L Chloride (98-107) mmol/L Carbon Dioxide 21.1 L (22-30) mmol/L BUN 31.0 H (9-20) mg/dL Creatinine 1.8 H (0.66-1.25) mg/dL Est GFR (CKD-EPI)AfAm 39.7 L (60.0-200.0) Est GFR (CKD-EPI)NonAf 34.3 L (60.0-200.0)
[2020-12-19] MEDS ORDERED: NORTRIPTYLINE 25 MG CAP PO SCH (21:00)
[2020-12-20] MEDS: HEPARIN SODIUM,PORCINE/PF 5,000 UNIT/0.5 ML SYRINGE SQ SCH ×2 (00:42→08:10)
[2020-12-20] MEDS: AMPICILLIN-SULBACTAM 3 GM in SODIUM CHLORIDE 0.9% 100 ML IVPB SCH ×2 (04:20→11:09)
[2020-12-20 08:05] VITALS: RESP 17
[2020-12-20] MEDS: ASPIRIN 81 MG PO SCH (08:10)
[2020-12-20] MEDS: ATORVASTATIN 20 MG TAB PO SCH (08:11)
[2020-12-20] MEDS: CITALOPRAM HYDROBROMIDE 20 MG TAB PO SCH (08:11)
--- NOTE | 2020-12-20 11:42 | P.DS ---
Providers Date of admission: 12/18/20 17:38 Expected date of discharge: 12/20/20 Attending physician: Marcella Murphy MD Primary care physician: Crystal Carmichael MD Hospital Course: Discharge Diagnosis: Cellulitis of right hand secondary to cat bite Acute kidney injury, improved Hypertension Hyperlipidemia History of CVA Hospital Course: Patient is a very pleasant 80-year-old male with a past medical history of CVA, hypertension, and hyperlipidemia. Patient presented to the hospital and with a chief complaint of right hand pain and swelling after being bitten by his cat a couple days prior. Patient diagnosed with right hand cellulitis and acute kidney injury after absent revealing BUN 28, creatinine 1.96, and GFR of 31 with a baseline creatinine of 1.5. X-ray right hand revealing generalized soft tissue swelling with vascular calcifications suggesting underlying diabetes or chronic kidney disease with no osseous abnormalities seen. Patient admitted under our services and started on IV antibiotic Unasyn along with IV fluids for gentle hydration for treatment of ISATU. AK I improved and patient had significant improvement of erythema and edema of right hand. Sensation and range of motion remains intact, patient educated on importance of continuing hand exercises and instructed that if he begins to notice a decrease in his ability for flexion or extension of his hand or fingers or if he notices a return of redness or swelling he will need to seek additional medical treatment at that time. Patient being discharged home on Augmentin 500/125 mg tablets to be taken twice daily for 8 days for a total of 10 days of antibiotic therapy. Patient instructed that he will need to follow up outpatient with his primary care doctor next week for follow-up as well as to have labs drawn to ensure renal function back to baseline levels. Physical exam: Patient seen and fully evaluated at bedside this morning. Patient continues to deny having any numbness or tingling of his right hand or decreased range of motion. He also denies having any fever, chills, headache, lightheadedness, dizziness, chest pain, palpitations, shortness of breath, or any other complaints or concerns at this time. Vital signs reviewed and stable. General: Nontoxic, no distress and appears stated age. Derm: Skin warm and dry, slight swelling and erythema to posterior surface of right hand, no drainage present. Head: Atraumatic, normocephalic and symmetric. Eyes: EOMs intact, no lid lag, and anicteric sclera Mouth: no lip lesions, mucus membranes moist Cardiovascular: regular rate and rhythm with normal S1S2, no murmur, positive posterior tibial pulses bilaterally, and cap refill < 2 seconds. Lungs: Respirations even, regular, and unlabored on room air. Lungs CTA bilaterally, no rhonchi, no rales, no wheezing, and no accessory muscle usage. Abdominal: soft, nontender to palpation, no guarding, no appreciable organomegaly Ext: ROM intact. No gross muscle atrophy, no edema, no contractures Neuro: Speech clear, face symmetrical and CN II-XII grossly intact with no noted focal neuro deficits Psych: Alert and oriented to person, place, time, and situation. Appropriate and pleasant affect. A total of 45 minutes of time were spent preparing this complex discharge summary. Patient Condition at Discharge: Stable Plan - Discharge Summary Discharge Rx Participant: No New Discharge Prescriptions: New Amoxicillin/Potassium Clav [Augmentin 500-125 Tablet] 1 tab PO Q12HR 8 Days #16 tab Continue Aspirin [Adult Low Dose Aspirin EC] 81 mg PO DAILY Nortriptyline [Pamelor] 50 mg PO HS Citalopram Hydrobromide [CeleXA] 20 mg PO DAILY Cholecalciferol [Vitamin D3 (25 Mcg = 1000 Iu)] 2,000 unit PO HS Nitroglycerin Sl Tabs [Nitrostat] 0.4 mg SUBLINGUAL Q5M PRN #25 tab PRN Reason: Chest Pain Atorvastatin [Lipitor] 20 mg PO DAILY Acetaminophen Tab [Tylenol] 500 mg PO Q6HR PRN PRN Reason: Pain Discharge Medication List Aspirin [Adult Low Dose Aspirin EC] 81 mg PO DAILY 08/27/15 [History] Cholecalciferol [Vitamin D3 (25 Mcg = 1000 Iu)] 2,000 unit PO HS 06/26/16 [Histo ry] Citalopram Hydrobromide [CeleXA] 20 mg PO DAILY 06/26/16 [History] Nortriptyline [Pamelor] 50 mg PO HS 06/26/16 [History] Nitroglycerin Sl Tabs [Nitrostat] 0.4 mg SUBLINGUAL Q5M PRN #25 tab 07/03/16 [Rx] Atorvastatin [Lipitor] 20 mg PO DAILY 11/26/17 [History] Acetaminophen Tab [Tylenol] 500 mg PO Q6HR PRN 12/18/20 [History] Amoxicillin/Potassium Clav [Augmentin 500-125 Tablet] 1 tab PO Q12HR 8 Days #16 tab 12/20/20 [Rx] Follow up Appointment(s)/Referral(s): Crystal Carmichael MD [Primary Care Provider] - 1-2 days Ambulatory/Diagnostic Orders: Basic Metabolic Panel [LAB.AMB] Time Frame: 3 Days, Location: None Selected Patient Instructions/Handouts: Animal Bite (DC) Activity/Diet/Wound Care/Special Instructions: Special Instructions: Remember it is important to continue doing exercises with your right hand and if you notice a decrease in flexion or extension of your hand or fingers or return of redness or swelling, you will need to seek additional medical treatment at that time. Please take entire course of antibiotics as directed. As we discussed you're being discharged home on Augmentin and will take the first dose tonight at 8 PM and begin tomorrow twice daily at 8 AM and again at 8 PM and continue this until entire antibiotic course is completed. Thank you for allowing us to participate in your care, it was truly a pleasure having you for our patient! Discharge Disposition: HOME SELF-CARE
[2020-12-20 13:16] LABS: African American GFR (CKD) 46 (>60 ml/min/1.73 sqM); Anion Gap 7 mmol/L; Blood Urea Nitrogen 23 mg/dL (9-20); Calcium 9.1 mg/dL (8.4-10.2); Carbon Dioxide 21 mmol/L (22-30); Chloride 108 mmol/L (98-107); Glucose 89 mg/dL (74-99); Non-African American GFR(CKD) 39 (>60 ml/min/1.73 sqM); Potassium 5.2 mmol/L (3.5-5.1); Sodium 136 mmol/L (137-145)
[2020-12-20 14:13] VITALS: BP 110/47; PULSE 58; TEMP 98.2
== END 2020-12-20 15:15 | disposition home or self-care (01) ==
LOC: EC 14:43 → 6NMEDSUR 17:38
PROVIDERS: ADMIT Internal Medicine; ATTEND Internal Medicine
DX: S61.451A Open bite of right hand, initial encounter (principal); E78.5 Hyperlipidemia, unspecified; E86.0 Dehydration; E87.5 Hyperkalemia; F32.9 Major depressive disorder, single episode, unspecified; G89.29 Other chronic pain; I10 Essential (primary) hypertension; I44.7 Left bundle-branch block, unspecified; L03.113 Cellulitis of right upper limb; N17.9 Acute kidney failure, unspecified; W55.01XA Bitten by cat, initial encounter; Z79.82 Long term (current) use of aspirin; Z79.899 Other long term (current) drug therapy; Z86.73 Personal history of transient ischemic attack (TIA), and cerebral infarction without residual deficits; Z87.891 Personal history of nicotine dependence
CPT/HCPCS: 96361 ×2; 96365; 96366 ×2; 96372 ×2; 99285; 36415; 93005; 80053; 80048 ×2; 83605; 85025; 85027; 81003; 87040; 73130; G0378 ×3; J0295 ×3; J1644 ×2

== ENCOUNTER → 2020-12-21 | Outpatient (CLI) | payer MEDICARE, BC ==
[2020-12-21 21:44] LABS: African American GFR (CKD) 39.7 (60.0-200.0); Anion Gap 8.4 mmol/L (4.00-12.00); BUN/Creat Ratio 12.78 Ratio (12.00-20.00); Carbon Dioxide 20.6 mmol/L (21.6-31.8); Non-African American GFR(CKD) 34.3 (60.0-200.0); Potassium 4.8 mmol/L (3.5-5.5)
== END | disposition home or self-care (01) ==
LOC: LABWHC1 13:33
PROVIDERS: ATTEND Nurse Practitioner
DX: Z09 Encounter for follow-up examination after completed treatment for conditions other than malignant neoplasm (principal)
CPT/HCPCS: 36415; 80048

== ENCOUNTER → 2021-01-03 | Outpatient (CLI) | payer MEDICARE, BC ==
--- NOTE | 2021-01-04 09:51 | ECHOF ---
Referral Reason:R06.02 MEASUREMENTS -------- HEIGHT: 175.3 cm WEIGHT: 92.1 kg BP: IVSd: 1.4 cm (0.6 - 1.1) LVIDd: 4.4 cm (3.9 - 5.3) LVPWd: 1.1 cm (0.6 - 1.1) IVSs: 1.8 cm LVIDs: 2.6 cm LVPWs: 1.9 cm Ao Diam: 3.4 cm (2.0 - 3.7) AV Cusp: 1.4 cm (1.5 - 2.6) LA Diam: 2.6 cm (2.7 - 3.8) MV EXCURSION: 12.842 mm (> 18.000) MV EF SLOPE: 45 mm/s (70 - 150) EPSS: 3.5 cm MV E Joaquin: 0.66 m/s MV DecT: 238 ms MV A Joaquin: 0.79 m/s MV E/A Ratio: 0.84 AV maxP.11 mmHg AV meanP.97 mmHg RAP: 5.00 mmHg RVSP: 9.79 mmHg FINDINGS -------- This was a technically difficult study with suboptimal views. The left ventricular size is normal. There is mild concentric left ventricular hypertrophy. Overa ll left ventricular systolic function is low-normal with, an EF between 50 - 55 %. The right ventricle is normal in size. The left atrial size is normal. The right atrial size is normal. Lumason used Aortic valve is trileaflet and is moderately thickened. There is moderate aortic stenosis present. Peak/mean gradient across the Aortic Valve is 30.11mmHg / 17.97mmHg. The mitral valve is normal. Mild mitral regurgitation is present. The tricuspid valve appears structurally normal. Mild tricuspid regurgitation present. Right vent ricular systolic pressure is normal at < 35 mmHg. The pulmonic valve was not well visualized. The aortic root size is normal. IVC Not well visulized. There is no pericardial effusion. CONCLUSIONS -------- 1. The left ventricular size is normal. 2. There is mild concentric left ventricular hypertrophy. 3. Overall left ventricular systolic function is low-normal with, an EF between 50 - 55 %. 4. Aortic valve is trileaflet and is moderately thickened. 5. There is moderate aortic stenosis present. 6. Peak/mean gradient across the Aortic Valve is 30.11mmHg / 17.97mmHg. 7. Mild mitral regurgitation is present. 8. Mild tricuspid regurgitation present. 9. There is no pericardial effusion. BEER MAKER: Fozia Richards RDCS
== END | disposition home or self-care (01) ==
LOC: RADECHMAIN 15:08
PROVIDERS: ATTEND Internal Medicine
DX: I08.3 Combined rheumatic disorders of mitral, aortic and tricuspid valves (principal)
CPT/HCPCS: C8929; Q9950; 93306

== ENCOUNTER → 2021-04-09 | Outpatient (CLI) | payer MEDICARE, BC ==
--- NOTE | 2021-04-09 10:33 | XR ---
EXAMINATION TYPE: XR lumbar spine 2 or 3V DATE OF EXAM: 04/09/2021 CLINICAL HISTORY: pain TECHNIQUE: Three views of the lumbar spine are submitted. COMPARISON: None. FINDINGS: There are 5 lumbar type vertebral bodies identified. The lumbar spine shows satisfactory alignment w ithout evidence of acute fracture or dislocation. Vertebral body heights are within normal limits. Severe multilevel degenerative disc disease and spondylosis identified. Severe facet joint arthropath y. The overlying soft tissue appears unremarkable. IMPRESSION: No acute fracture or dislocation is seen in the lumbar spine. ICD 10 NO FRACTURE, INITIAL EVALUATION
--- NOTE | 2021-04-09 10:34 | XR ---
EXAMINATION TYPE: XR pelvis AP view DATE OF EXAM: 04/09/2021 CLINICAL HISTORY: pain TECHNIQUE: Single view the pelvis is submitted. FINDINGS: No evidence for fracture, dislocation or bony lesion. Joint spaces are well-preserved. S I joints appear symmetric. IMPRESSION: 1. No acute fracture or dislocation seen. ICD 10 NO FRACTURE, INITIAL EVALUATION
== END | disposition home or self-care (01) ==
LOC: RADXRMAIN 09:46
PROVIDERS: ATTEND Internal Medicine
DX: M54.50 Low back pain, unspecified (principal); R10.2 Pelvic and perineal pain
CPT/HCPCS: 72100; 72170

== ENCOUNTER → 2021-04-12 | Outpatient (CLI) | payer MEDICARE, BC ==
--- NOTE | 2021-04-12 15:42 | CT ---
EXAMINATION TYPE: CT brain zach gonzalez DATE OF EXAM: 04/12/2021 COMPARISON: Correlation CT HEAD 04/29/2012 HISTORY: 81-year-old male Fall 1 week ago. Left posterior head injury. CT DLP: 1663 mGycm Automated exposure control for dose reduction was used. Technique: Examination of the head was done in axial plane without intravenous contrast. Coronal and sagittal reconstructions performed. CT of the cervical spine was obtained in axial plane without intravenous injection of contrast mater ial. Coronal and sagittal reformatted images were obtained from the axial views for evaluation of f ractures, spinal alignment and canal. FINDINGS: Head: Normal variation hyperostosis frontalis interna. Moderate ventriculomegaly with evidence ratio calcul ated at 0.43 versus 0.30 back in 2012. Bifrontal august holes are redemonstrated. No calvarial fracture. Mild patchy white matter hypodensities in both cerebral hemispheres. There is no evidence of acute intracranial hemorrhage, acute ischemic changes, mass, mass-effect, or extra-axial fluid collection. There is no effacement of cerebral sulci or basal subarachnoid cister ns. There is no midline shift. Whittaker-white matter distinction is preserved. Paranasal sinuses and mastoid air cells well pneumatized. Orbits and globes are intact. Mastoid air c ells are well pneumatized. Cervical spine: No craniocervical junction abnormality, predental space widening, or prevertebral soft tissue swellin g. Degenerative changes of the C1 dens articulation. Reversal of the normal cervical lordosis along the lower cervical spine. There is decreased trace degenerative grade 1 anterolisthesis C3-C4 and C4-C5. Degenerative bony anky losis C5-C6. Moderate to advanced disc/endplate degenerative change C6-C7. Discussed by complex is in the lower cervical spine likely contributing to at least mild spinal canal stenoses. Hypertrophic facet and uncovertebral joint arthropathy mid to lower cervical spine. No acute fracture of the cervical spine. Changes result in severe foraminal stenosis on the left at C2-C3, right C3-C4, right C4-C5, right C5- C6. Moderate right C6-C7. Sagittal and coronal reformatted images confirm above findings. COMBINED IMPRESSION: 1. Moderate hydrocephalus with Qamar's ratio of 0.43 (versus 0.30 back in 2012). Findings highly sugge stive of normal pressure hydrocephalus. Clinically correlate. 2. 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 Mild patchy burden of chronic small vessel ischemic disease. No acute in tracranial abnormality otherwise seen. 3. Moderate to advanced spondylotic change. Degenerative grade 1 anterolisthesis C3-C4 and C4-C5. 4. Variable moderate to severe neuroforaminal stenoses as outlined above.
== END | disposition home or self-care (01) ==
LOC: RADCTMAIN 14:20
PROVIDERS: ATTEND Internal Medicine
DX: G91.9 Hydrocephalus, unspecified (principal); W19.XXXA Unspecified fall, initial encounter; Y92.009 Unspecified place in unspecified non-institutional (private) residence as the place of occurrence of the external cause
CPT/HCPCS: 70450; 72125

== ENCOUNTER → 2021-05-30 | Outpatient (CLI) | payer MEDICARE, BC ==
[2021-05-31 00:56] LABS: African American GFR (CKD) 46.2 (60.0-200.0); Albumin 4.3 g/dL (3.8-4.9); Albumin/Globulin Ratio 1.53 (1.60-3.17); Anion Gap 12.5 mmol/L (10.00-18.00); BUN/Creat Ratio 16.46 Ratio (12.00-20.00); Calcium 9.6 mg/dL (8.7-10.3); Carbon Dioxide 24.1 mmol/L (20.0-27.5); Globulin 2.8 g/dL (1.6-3.3); Non-African American GFR(CKD) 39.9 (60.0-200.0); Potassium 4.8 mmol/L (3.5-5.5); Total Bilirubin 0.3 mg/dL (0.30-1.20)
== END | disposition home or self-care (01) ==
LOC: LABWHC1 14:46
PROVIDERS: ATTEND Internal Medicine Interventional Cardiology
DX: I25.5 Ischemic cardiomyopathy (principal)
CPT/HCPCS: 36415; 80053; 83880

== ENCOUNTER 2021-06-03 05:58 | Inpatient (IN) | payer MEDICARE, BC ==
[~2021-06-03 05:58] MED LIST changes: +HEPARIN SODIUM,PORCINE 10,000 UNIT in SODIUM CHLORIDE 0.9% 1,000 ML IRRIGATION PRN; +HEPARIN SODIUM,PORCINE 2,500 UNIT in SODIUM CHLORIDE 0.9% 250 ML IRRIGATION PRN; -SODIUM CHLORIDE 0.9% 1,000 ML in EMPTY BAG 1 BAG IV ONE
[2021-06-03] MEDS: SODIUM CHLORIDE 0.9% 1,000 ML in EMPTY BAG 1 BAG IV SCH ×2 (06:40→16:57)
[2021-06-03 06:51] LABS: Basophils # (A) 0.1 k/uL (0-0.2); Basophils % (A) 1 %; Eosinophils # (A) 0.7 k/uL (0-0.7); Eosinophils % (A) 8 %; HCT 32.5 % (39.0-53.0); HGB 10.8 gm/dL (13.0-17.5); Lymphocytes # (A) 1.5 k/uL (1.0-4.8); Lymphocytes % (A) 18 %; MCH 31.1 pg (25.0-35.0); MCHC 33.2 g/dL (31.0-37.0); MCV 93.5 fL (80.0-100.0); Mean Platelet Volume 7.6; Monocytes # (A) 0.4 k/uL (0-1.0); Monocytes % (A) 5 %; Neutrophils # (A) 5.5 k/uL (1.3-7.7); Neutrophils % (A) 65 %; Platelet Count 325 k/uL (150-450); RBC 3.48 m/uL (4.30-5.90); RDW 13.8 % (11.5-15.5); WBC 8.4 k/uL (3.8-10.6)
[2021-06-03] MEDS ORDERED: fentaNYL (PF) 50 MCG/ML 2 ML AMP ONE (07:08)
[2021-06-03] MEDS: BENZOCAINE SPRAY 1 CAN MUCOUS MEM ONE ×2 (07:18→07:21)
[2021-06-03] MEDS ORDERED: IV FLUID CONTINUATION 900 ML IV ONE (07:18)
[2021-06-03] MEDS ORDERED: VERAPAMIL 2.5 MG/ML 2 ML AMP ONE (07:18)
[2021-06-03] MEDS ORDERED: LIDOCAINE 1% INJ 10MG/ML (20 ML MDV) ONE (07:18)
[2021-06-03] MEDS ORDERED: MIDAZOLAM 2 MG/2 ML VIAL IV ONE (07:20)
[2021-06-03] MEDS ORDERED: fentaNYL (PF) 50 MCG/ML 2 ML AMP IV ONE (07:20)
[2021-06-03] MEDS ORDERED: LIDOCAINE 1% INJ 10MG/ML (20 ML MDV) SQ ONE (07:58)
[2021-06-03] MEDS ORDERED: HEPARIN SODIUM 1,000 UN/ML (10ML VL) ONE (07:58)
[2021-06-03] MEDS ORDERED: VERAPAMIL SYRINGE (5 MG/10 ML) INTRAARTER ONE (08:00)
[2021-06-03] MEDS ORDERED: IOPAMIDOL-370 125ML BTL INJ ONE (08:20)
[2021-06-03 08:27] LABS: O2 Sat Blood Gas 97.2 %
[2021-06-03 08:29] LABS: O2 Sat Blood Gas 63.2 %
[2021-06-03 08:31] LABS: O2 Sat Blood Gas 64.1 %
[2021-06-03] MEDS ORDERED: RX INFO: IV CONTRAST WAS GIVEN 1 EACH MISC MISCELLANE PRN (08:40)
[2021-06-03] MEDS ORDERED: NORTRIPTYLINE 25 MG CAP PO PRN (08:41)
[2021-06-03] MEDS ORDERED: HEPARIN SODIUM 1,000 UN/ML (10ML VL) IV PRN (08:42)
[2021-06-03] MEDS ORDERED: SODIUM CHLORIDE 0.9% 1,000 ML IV SCH (08:45)
--- NOTE | 2021-06-03 08:57 | P.PN ---
Progress Note - Text Progress Note Date: 06/03/21 (Right and left left heart catheterization) Mr. Wick is an 81-year-old male with a known history of CAD who recently presented with symptoms of progressive dyspnea and was found to have progression of mitral regurgitation and worsening ejection fraction, view that recommendations were made regarding cardiac catheterization. The procedure as well as the risk and the complications were discussed with him and he was in full understanding and agreement. Procedure: Patient was brought to the bundle tier and labeler in the fasting submitted state after receiving fentanyl and Benadryl and achieving moderate conscious sedative state, using Xylocaine anesthesia in the Seldinger technique a 6-[place] sheath was introduced in the right radial artery subsequently using the guidewire exchange technique the venous sheath in the right basilic vein was exchanged to a 6- [place] sheath. Subsequently right heart catheterization was performed using a [place]-Isadora catheter, multiple samples and pressures were calculated. Cardiac output was calculated. Subsequently selective right and left coronary angiography 5-Central African 4 bend right the left Richa catheter. Subsequently a 6- [place] tight pigtail catheter was introduced in the left ventricle and pressures were calculated. Following that catheter and sheaths were removed, hemostasis was obtained with deployment of a TR band and compression of the right brachial area. The patient received 4500 unit of intravenous heparin and intra-arterial verapamil, there was no immediate complication. Findings: Hemodynamics: Right atrial saturation 64%, pulmonary artery saturation 63%, arterial saturation 97%. Cardiac output by Minnie 5.2 L/m and by thermal 5.3 L/m. P ulmonary artery systolic pressure 62, diastolic 20 with a mean of 32 millimeter of mercury, pulmonary capillary wedge pressure A wave 28, V wave 40, mean of 24 mmHg, right ventricle systolic of 60, diastolic of 7 mmHg, right atrium A wave of 3, V wave of 6 with a mean of 3 mmHg, left ventricular end-diastolic pressure 16-20 to mercury, gradient across the aortic valve of 21 mmHg, aortic valve area of 1.4 cm. Coronaries: Left main this is a large size vessel, bifurcating into LAD and left circumflex, left main has 95% stenosis distally with haziness and calcifications. LAD: This is a large size vessel, reaching to the apex with a wraparound the apex segment, the stented segment in the proximal LAD is patent the ostium of daily D has 60-70% stenosis, the first diagonal branch has 80-90% stenosis. Left circumflex: This is a nondominant large size vessel giving rise to 2 obtuse marginal branch, the left circumflex ostium has 99% stenosis. RCA: This is a large dominant vessel, bifurcating into PDA and PLV, right coronary artery has 20-30% plaque in the midsegment. Left ventriculogram: Left ventriculogram was not performed. Findings: 1. Severe distal left main disease. 2. Severe ostial left circumflex disease. 3. Severe ostial LAD disease. 4. Mild disease in the RCA. Recommendations: In view of the findings, with the left main disease and severe ostial disease of the LAD and left circumflex, impaired left ventricle systolic function and moderate to severe mitral regurgitation have recommended to proceed with evaluation for CABG and mitral valve repair. Those findings and recommendations were discussed with the patient's and his family and they are in full understanding. The prognosis is guarded. X Duration of sedation 26 minutes.
[2021-06-03] MEDS ORDERED: SODIUM CHLORIDE 0.9% 250 ML BAG ONE (09:00)
[2021-06-03] MEDS ORDERED: NOREPINEPHRINE 1 MG/ML 4 ML VIAL IV ONE (09:00)
[2021-06-03 09:06] LABS: Appearance,Urine Clear (Clear); Bilirubin,Urine Negative (Negative); Blood,Urine Negative (Negative); Color,Urine Light Yellow; Glucose,Urine (UA) Negative (Negative); Ketones,Urine Negative (Negative); Leukocyte Esterase,Urine Negative (Negative); Nitrite,Urine Negative (Negative); Protein,Urine Negative (Negative); Specific Gravity,Urine 1.015 (1.001-1.035); Urobilinogen,Urine <2.0 mg/dL (<2.0)
[2021-06-03] MEDS: HEPARIN SOD,PORK IN 0.45% NACL 25,000 UNIT in 0.45% NACL 1 250ML.BAG IV SCH (09:40)
[2021-06-03 10:05] LABS: Prothrombin Time 10.8 sec (9.0-12.0)
[2021-06-03 10:21] LABS: Partial Thromboplastin Time 184.2 sec (22.0-30.0)
--- NOTE | 2021-06-03 11:11 | ECHOT ---
TRANSESOPHAGEAL ECHOCARDIOGRAM INDICATION: Evaluation of mitral regurgitation. PROCEDURE: After explaining the procedure to the patient, its risks and complications, his blood pressure, heart rate and O2 saturation were monitored. The throat was sprayed with Cetacaine. He received 2 mg intravenous Versed and 50 mcg intravenous fentanyl. The probe was introduced in the esophagus without difficulty. Images were obtained. Following that, the probe was removed. FINDINGS: Left atrial size is dilated. Left atrial appendage is normal. Left ventricular size is normal. Anteroapical and anteroseptal butcher are hypokinetic. Estimated ejection fraction 30 to 35%. The tricuspid valve is fibrocalcific with reduced opening. Mitral valve revealed mild thickening of the mitral valve leaflets. Tricuspid valve is normal. Descending thoracic aorta revealed mild to moderate atherosclerotic changes. No pericardial effusion was noted. Contrast bubble study revealed no shunting across the interatrial septum. Doppler, pulse wave and color Doppler were obtained and revealed moderate central mitral regurgitation with mild aortic and tricuspid regurgitation. The estimated right ventricular systolic pressure was 47 mmHg. There was no shunting by color Doppler study. CONCLUSION: 1. Dilated left atrium with normal appearance left atrial appendage. 2. Normal left ventricular size with moderately severely impaired left ventricular systolic function with segmental wall motion abnormality. 3. Moderate central mitral regurgitation. 4. Aortic sclerosis with reduced opening and mild aortic regurgitation. 5. Mild tricuspid regurgitation with moderate pulmonary hypertension. 6. Moderate atherosclerotic changes of the descending thoracic aorta. 7. No pericardial effusion. MMODL / IJN: [id number] / MTDD
--- NOTE | 2021-06-03 12:13 | US ---
EXAMINATION TYPE: US carotid duplex BILAT DATE OF EXAM: 06/03/2021 COMPARISON: NONE CLINICAL HISTORY: Pre-Op Cardiac Surgery. EXAM MEASUREMENTS: RIGHT: Peak Systolic Velocity (PSV) cm/sec ----- Right CCA: 46.2 ----- Right ICA: 122.0 ----- Right ECA: 72.8 ICA/CCA ratio: 2.6 RIGHT: End Diastole cm/sec ----- Right CCA: 10.6 ----- Right ICA: 31.3 ----- Right ECA: 9.5 LEFT: Peak Systolic Velocity (PSV) cm/sec ----- Left CCA: 42.9 ----- Left ICA: 82.3 ----- Left ECA: 58.7 ICA/CCA ratio: 1.9 LEFT: End Diastole cm/sec ----- Left CCA: 8.4 ----- Left ICA: 11.6 ----- Left ECA: 4.6 VERTEBRALS (direction of flow): Right Vertebral: Antegrade Left Vertebral: Antegrade Rhythm: Normal Bilateral atheromatous plaquing. On visual inspection this appears to be approaching 50%. Turbulent f low however is not identified. Elevated velocity suggests stenosis above 50% is not evident. IMPRESSION: 1. Atheromatous plaquing. The mild narrowing at the right internal carotid artery is approaching 50% based on velocity. Criteria for Assigning % of Stenosis / Diameter reduction (Estimation based on the indirect measurements of the internal carotid artery velocities (ICA PSV). 1. Normal (no stenosis)=ICA PSV < 125 cm/s: ratio < 2.0: ICA EDV<40 cm/s. 2. Less than 50% stenosis=ICA PSV < 125 cm/s: ratio < 2.0: ICA EDV<40 cm/s. 3. 50 to 69% stenosis=ICA PSV of 125 to 230 cm/s: ration 2.0 ? 4.0: ICA EDV 40-100 cm/s. 4. Greater than 70% stenosis to near occlusion= ICA PSV > 230 cm/s: ratio > 4.0: ICA EDV > 100 cm/s. 5. Near occlusion= ICA PSV velocities may be low or undetectable: variable ratio and ICA EDV. 6. Total occlusion=unable to detect flow.
--- NOTE | 2021-06-03 12:37 | XR ---
EXAMINATION TYPE: XR chest 2V DATE OF EXAM: 06/03/2021 COMPARISON: 03/30/2012 INDICATION: Precardiac surgery TECHNIQUE: Frontal and lateral views of the chest are obtained. FINDINGS: The heart size is normal. The pulmonary vasculature is normal. There is a posterior right lung infiltrate. Correlate for atelectasis or pneumonia. Small amount of e ffusion may be present.. IMPRESSION: 1. Posterior right lung infiltrate. Small pleural effusion may be present. Correlate for atelectasis and pneumonia.
--- NOTE | 2021-06-03 13:20 | P.GSCN ---
<Steve Bee - Last Filed: 06/03/21 12:50> History of Present Illness Consult date: 06/03/21 Reason for Consult: Coronary artery disease with left main disease, moderate mitral valve regurgita tion. Requesting physician: Crystal Guzmán History of present illness: This is an 81-year-old gentleman who follows on an outpatient basis for his [facility] care service with Dr. Carmichael. He also follows with Dr. Guzmán for his cardiology care. He is a past medical history significant for hypertension, dyslipidemia, chronic systolic heart failure with an ejection fraction of 20% per 2-D echocardiogram, coronary artery disease with previous stent placement to his proximal left anterior descending coronary artery in 2016, peripheral vascular disease with intermittent claudication, depression, hydrocephaly with previous shunt placement which was removed in 2007, neuropathy, chronic lower back pain with spinal stenosis, arthritis, family history of coronary artery disease and a remote history of nicotine dependence which he quit smoking in . Recently, the patient has had complaints of dyspnea on exertion,, dyspnea at rest, feeling fatigue and lack of energy. He denies any complaints of chest pain, nausea, vomiting, fever, chills, orthopnea, palpitations, presyncope or syncope. He reports the dyspnea on exertion has been present for the last few months. On 05/21/2021, because of his complaints of dyspnea on exertion he underwent a transthoracic 2-D echocardiogram at Dr. Guzmán's office. The 2-D echocardiogram demonstrated a mildly dilated left ventricle with severely decreased function with an ejection fraction of less than 20%, normal right ventricular size with normal function, a trileaflet aortic valve with mild aort ic valve regurgitation and mild to moderate aortic valve stenosis with a peak/mean gradient across aortic valve of 32 mmHg/18 mmHg, moderate to severe mitral valve regurgitation, moderate tricuspid valve regurgitation and physiologic pulmonic valve regurgitation. Subsequently, due to the findings on the transthoracic 2-D echocardiogram further recommendations for the patient were made to undergo a transesophageal echocardiogram and cardiac catheterization. Today 06/03/2020 the patient underwent a cardiac catheterization and transesophageal echocardiogram performed by Dr. Guzmán. The cardiac catheterization results demonstrated a 95% stenosis to his distal left main coronary artery, the stented segment of the proximal left anterior descending coronary artery to be patent with a 60-70% stenosis of the proximal left anterior setting coronary artery, and 80-90% stenosis to his first diagonal branch, a 99% stenosis to his ostial circumflex coronary artery and a 20-30% stenosis to his mid segment of his right coronary artery. During the heart catheterization a left ventriculogram was not performed. The transesophageal echocardiogram results demonstrated a dilated left atrium with normal appearance of the left atrial appendage, normal left ventricular size with moderately to severely impaired left ventricular systolic function with a segmental wall motion abnormality, moderate central mitral valve regurgitation, mild aortic valve regurgitation and mild tricuspid valve regurgitation. The findings on the cardiac catheterization and transesophageal echocardiogram were reviewed by Dr. Guzmán with the patient and the patient's and a consult was placed to Dr. Shawn Barboza from cardiothoracic surgery for further treatment recommendations including cardiac surgery. Review of Systems A 14 point review of systems was completed and was negative except as mentioned in the HPI. Past Medical History Past Medical History: Coronary Artery Disease (CAD), Heart Failure, Hyperlipidemia, Hypertension, Vascular Disorder (History of peripheral vascular disease with intermittent claudication) Additional Past Medical History / Comment(s): Hydrocephaly, TIA "long time ago", leaky heart valve, poor circulation, swelling right lower leg, migraines. History of Any Multi-Drug Resistant Organisms: None Reported Past Surgical History: Tonsillectomy Additional Past Surgical History / Comment(s): Brain surgery for hydrocephalus with shunt/ shunt later removed. Bilateral cataracts. Past Anesthesia/Blood Transfusion Reactions: No Reported Reaction Past Psychological History: Depression Smoking Status: Former smoker Past Alcohol Use History: None Reported Additional Past Alcohol Use History / Comment(s): Quit smoking in 1987, started smoking at age 14, 1 pack per week. Past Drug Use History: None Reported - Past Family History Father Family Medical History: Cancer Additional Family Medical History / Comment(s): Lung cancer. Daughter(s) Family Medical History: Cancer Additional Family Medical History / Comment(s): Breast cancer. Medications and Allergies Home Medications Medication Instructions Recorded Confirmed Type Aspirin [Adult Low Dose Aspirin EC] 81 mg PO DAILY 08/27/15 06/03/21 History Cholecalciferol [Vitamin D3 (25 2,000 unit PO HS 06/26/16 06/03/21 History Mcg = 1000 Iu)] Citalopram Hydrobromide [CeleXA] 20 mg PO DAILY 06/26/16 06/03/21 History Nortriptyline [Pamelor] 50 mg PO HS PRN 06/26/16 06/03/21 History Nitroglycerin Sl Tabs [Nitrostat] 0.4 mg SUBLINGUAL Q5M PRN #25 tab 07/03/16 05/27/21 Rx Atorvastatin [Lipitor] 20 mg PO DAILY 11/26/17 06/03/21 History Ascorbic Acid [Vitamin C] 500 mg PO DAILY 05/27/21 06/03/21 History Carvedilol [Coreg] 3.125 mg PO BID-W/MEALS 05/27/21 06/03/21 History Furosemide [Lasix] 20 mg PO DAILY 05/27/21 06/03/21 History Zinc 50 mg PO DAILY 05/27/21 06/03/21 History Allergies Allergy/AdvReac Type Severity Reaction Status Date / Time No Known Allergies Allergy Verified 05/27/21 15:13 Surgical - Exam Vital Signs Temp Pulse Resp BP Pulse Ox 97.6 F 73 16 127/59 97 06/03/21 06:59 06/03/21 06:59 06/03/21 06:59 06/03/21 06:59 06/03/21 06:59 CONSTITUTIONAL: Sitting up in bed in the extended stay unit, appears comfortable, cooperative, no apparent acute distress. HEENT: Neck is supple, no JVD, no lymphadenopathy. RESPIRATORY: Lungs sounds essentially clear throughout, diminished to his bilateral bases. Respirations are symmetrical and nonlabored. Currently on room air with oxygen saturations 97%. CARDIOVASCULAR: Regular rhythm and rate. S1 and S2 present, negative for S3, gallop or murmur. Sternum is stable. Palpable peripheral pulses bilaterally, no edema present. No calf pain or tenderness noted. GASTROINTESTINAL: Abdomen soft, nontender, nondistended. Active bowel sounds present 4 quadrants. No organomegaly. No guarding or rigidity. GENITOURINARY: Continues to void. INTEGUMENTARY: Skin is warm and dry with no evidence of clubbing or cyanosis. NEUROLOGIC: Cranial nerves II through XII intact. No focal deficits. MUSKULOSKELETAL: Able to move all extremities, strength equal bilaterally. PSYCHIATRIC: Alert and oriented to person place and time, appropriate affect, intact judgment and insight. Results - Labs 06/03/21 06:40 Abnormal Lab Results - Last 24 Hours (Table) 06/03/21 06/03/21 Range/Units 06:40 09:22 RBC 3.48 L (4.30-5.90) m/uL Hgb 10.8 L (13.0-17.5) gm/dL Hct 32.5 L (39.0-53.0) % APTT 184.2 H* (22.0-30.0) sec - Imaging Chest x-ray: report reviewed, image reviewed Additional studies: Cardiac catheterization films and transesophageal echocardiogram films were reviewed by Dr. Shawn Barboza. Assessment and Plan Assessment: 1. Coronary artery disease with left main disease 2. Moderate mitral valve regurgitation 3. Chronic systolic heart failure with an ejection fraction of 20% per 2-D echocardiogram 4. Dyspnea on exertion, likely secondary to above 5. History of hypertension 6. Dyslipidemia 8. History of coronary artery disease with previous stent placement to his left anterior descending coronary artery in 2016 9. Peripheral vascular disease with intermittent claudication 10. History of depression 11. History of hydrocephalus with previous shunt placement which was removed and 2007 12. Frequent headaches 13. Arthritis 14. Family history of coronary artery disease 15. Chronic low back pain with spinal stenosis 16. Remote history of nicotine dependence with smoking in 1982 Plan: The patient was seen and examined at his bedside in the extended stay unit with Dr. Shawn Barboza. His chart and diagnostics reviewed. Dr. Barboza discussed the findings on the cardiac catheterization and transesophageal echocardiogram with the patient and his present at his bedside. The usual course of myocardial revascularization surgery and mitral valve surgery was discussed in detail with the patient and the patient's . Risks and benefits were discussed including the STS risk score. The patient would be considered a high risk surgical candidate. The patient at this time leaning towards no surgery and pursuing medical therapy. Continue to optimize medical management. A bedside FEV1 was completed which showed a dictated value of 58%, 1.73 L. Subsequently, as mentioned above the patient is considered a high risk surgical patient for cardiac surgery and at this time in this would not be considered a candidate for cardiac surgery. Thank you Dr. Guzmán for this consult. Time with Patient: Greater than 30 <Shawn Barboza - Last Filed: 06/03/21 13:52> Surgical - Exam Vital Signs Temp Pulse Resp BP Pulse Ox 97.6 F 73 16 127/59 97 06/03/21 06:59 06/03/21 06:59 06/03/21 06:59 06/03/21 06:59 06/03/21 06:59 Results - Labs 06/03/21 06:40 Abnormal Lab Results - Last 24 Hours (Table) 06/03/21 06/03/21 Range/Units 06:40 09:22 RBC 3.48 L (4.30-5.90) m/uL Hgb 10.8 L (13.0-17.5) gm/dL Hct 32.5 L (39.0-53.0) % APTT 184.2 H* (22.0-30.0) sec Assessment and Plan Plan: The patient was seen and examined. I agree with the above assessment and plan. 81 y/o male with a history of multiple medical problems including HTN, PVD, coronary artery disease s/p stent, hydrocephalus s/p shunt and limited ambulation, who presents with worsening symptoms consistent with heart failure. Echo reveals a low EF as well as mod/severe MR and mod TR. Cath with multivessel CAD including 95% distal left main coronary artery lesion. The risks, benefits and alternatives to CABG/MV repair were discussed with the patient and his . Due to his co-morbidities and overall frailty, he was told he would be a high to prohibitive risk for surgery. At this time, the patient is not interested in pursuing surgical intervention. I will discuss with Dr. Guzmán to determine whether PCI is an option.
[2021-06-03] MEDS: NITROGLYCERIN OINT 1 INCH/GM PACKET TOPICAL SCH (16:57)
[2021-06-03] MEDS: carvediloL 3.125 MG TAB PO SCH (17:07)
[2021-06-03 17:28] LABS: ALT 16 U/L (4-49); AST 22 U/L (17-59); African American GFR (CKD) 51 (>60 ml/min/1.73 sqM); Albumin 3.9 g/dL (3.5-5.0); Alkaline Phosphatase 94 U/L (38-126); Anion Gap 7 mmol/L; Blood Urea Nitrogen 26 mg/dL (9-20); Calcium 9.2 mg/dL (8.4-10.2); Carbon Dioxide 25 mmol/L (22-30); Chloride 104 mmol/L (98-107); Glucose 112 mg/dL (74-99); Magnesium 1.9 mg/dL (1.6-2.3); Non-African American GFR(CKD) 44 (>60 ml/min/1.73 sqM); Potassium 4.2 mmol/L (3.5-5.1); Sodium 136 mmol/L (137-145); Total Bilirubin 0.6 mg/dL (0.2-1.3); Total Protein 7.1 g/dL (6.3-8.2)
[2021-06-03] MEDS ORDERED: MUPIROCIN 2% OINT 22 GM TUBE NASAL SCH (21:00)
[2021-06-03 23:18] LABS: Chol/HDL Ratio 4.22 Ratio; LDL Cholesterol,Calculated 76.9 mg/dL (0.0-131.0)
[2021-06-03 23:27] LABS: Hepatitis B Surface Antigen Nonreactive (Nonreactive)
[2021-06-04] MEDS: NITROGLYCERIN OINT 1 INCH/GM PACKET TOPICAL SCH ×3 (00:32→17:11)
[2021-06-04] MEDS: SODIUM CHLORIDE 0.9% 1,000 ML in EMPTY BAG 1 BAG IV SCH ×2 (05:24→17:14)
[2021-06-04 05:59] LABS: Basophils # (A) 0.1 k/uL (0-0.2); Basophils % (A) 1 %; Eosinophils # (A) 0.7 k/uL (0-0.7); Eosinophils % (A) 7 %; HCT 33.5 % (39.0-53.0); HGB 10.9 gm/dL (13.0-17.5); Lymphocytes # (A) 1.8 k/uL (1.0-4.8); Lymphocytes % (A) 19 %; MCH 30.9 pg (25.0-35.0); MCHC 32.5 g/dL (31.0-37.0); MCV 95.1 fL (80.0-100.0); Mean Platelet Volume 8.8; Monocytes # (A) 0.5 k/uL (0-1.0); Monocytes % (A) 6 %; Neutrophils # (A) 6.1 k/uL (1.3-7.7); Neutrophils % (A) 66 %; Platelet Count 290 k/uL (150-450); RBC 3.53 m/uL (4.30-5.90); RDW 13.8 % (11.5-15.5); WBC 9.2 k/uL (3.8-10.6)
[2021-06-04 06:01] LABS: Partial Thromboplastin Time 62.5 sec (22.0-30.0); Prothrombin Time 10.3 sec (9.0-12.0)
[2021-06-04] MEDS: carvediloL 3.125 MG TAB PO SCH ×2 (06:37→17:13)
[2021-06-04 07:16] LABS: Calcium 9.2 mg/dL (8.4-10.2); Potassium 4.1 mmol/L (3.5-5.1)
[2021-06-04] MEDS ORDERED: ALPRAZolam 0.5 MG TAB PO PRN (07:31)
[2021-06-04] MEDS ORDERED: NITROGLYCERIN SL TABS 0.4 MG TAB SUBLINGUAL PRN (07:31)
[2021-06-04] MEDS ORDERED: ALPRAZolam 0.25 MG TAB PO PRN (07:31)
[2021-06-04] MEDS ORDERED: ATORVASTATIN 80 MG TAB PO STA (07:31)
[2021-06-04] MEDS ORDERED: ASPIRIN 325 MG TAB PO STA (07:31)
[2021-06-04] MEDS ORDERED: CLOPIDOGREL 75 MG TAB PO ONE (07:34)
--- NOTE | 2021-06-04 07:39 | P.PN ---
Progress Note - Text Progress Note Date: 06/04/21 The patient underwent cardiac catheterization yesterday, was found to have critical left main disease involving the ostium of the left circumflex and the LAD. His XOCHILT showed moderate MR with moderately to severely impaired systolic function with segmental wall motion abnormality. He was evaluated by the cardiovascular surgical team. It was felt that he is a very high risk for CABG and mitral valve repair and the patient declined surgical intervention. I discussed with him the option of proceeding with high risk angioplasty and stenting of the left main, LAD and left circumflex with Impella support. The risks and the complications were discussed with the patient, he is understanding and in agreement with the plan. His physical examination today shows a mitral regurgitation murmur, his lungs are clear and his radial pulse is intact. The plan is to proceed with PCI with mechanical support tomorrow. Depending on his progress further recommendations will be made.
[2021-06-04 08:16] LABS: Hepatitis A Antibody IgM Nonreactive (Nonreactive); Hepatitis B Core IgM Nonreactive (Nonreactive); Hepatitis C IgG Antibody Nonreactive (Nonreactive)
[2021-06-04] MEDS: ATORVASTATIN 40 MG TAB PO SCH (09:08)
[2021-06-04] MEDS: CITALOPRAM HYDROBROMIDE 20 MG TAB PO SCH (09:09)
[2021-06-04] MEDS: ACETAMINOPHEN TAB 325 MG TAB PO PRN ×2 (09:11→17:13)
[2021-06-04] MEDS: ASPIRIN 81 MG PO SCH (09:11)
[2021-06-04] MEDS: HEPARIN SOD,PORK IN 0.45% NACL 25,000 UNIT in 0.45% NACL 1 250ML.BAG IV SCH (17:15)
[2021-06-05] MEDS: NITROGLYCERIN OINT 1 INCH/GM PACKET TOPICAL SCH ×2 (00:44→10:26)
[2021-06-05] MEDS: HEPARIN SOD,PORK IN 0.45% NACL 25,000 UNIT in 0.45% NACL 1 250ML.BAG IV SCH (00:50)
[2021-06-05] MEDS: SODIUM CHLORIDE 0.9% 1,000 ML in EMPTY BAG 1 BAG IV SCH ×3 (05:09→19:46)
[2021-06-05] MEDS: carvediloL 3.125 MG TAB PO SCH ×2 (06:29→19:06)
[2021-06-05] MEDS ORDERED: HEPARIN SODIUM,PORCINE 2,500 UNIT in SODIUM CHLORIDE 0.9% 250 ML IRRIGATION PRN (07:00)
[2021-06-05] MEDS ORDERED: HEPARIN SODIUM,PORCINE 10,000 UNIT in SODIUM CHLORIDE 0.9% 1,000 ML IRRIGATION PRN (07:00)
[2021-06-05] MEDS: ACETAMINOPHEN TAB 325 MG TAB PO PRN (09:20)
[2021-06-05] MEDS: CITALOPRAM HYDROBROMIDE 20 MG TAB PO SCH (10:25)
[2021-06-05] MEDS: ASPIRIN 81 MG PO SCH (10:26)
[2021-06-05] MEDS: ATORVASTATIN 40 MG TAB PO SCH (10:26)
[2021-06-05 10:47] LABS: Calcium 9.2 mg/dL (8.4-10.2); Potassium 4.3 mmol/L (3.5-5.1)
[2021-06-05] MEDS ORDERED: IV FLUID CONTINUATION 600 ML IV ONE (13:10)
[2021-06-05] MEDS ORDERED: fentaNYL (PF) 50 MCG/ML 2 ML AMP IV ONE (13:19)
[2021-06-05] MEDS ORDERED: LIDOCAINE 1% INJ 10MG/ML (20 ML MDV) SQ ONE (13:22)
[2021-06-05] MEDS: HEPARIN SODIUM 1,000 UN/ML (10ML VL) IV ONE ×4 (13:54→15:10)
[2021-06-05] MEDS ORDERED: IOPAMIDOL-370 125ML BTL INJ ONE (14:22)
[2021-06-05] MEDS ORDERED: IOPAMIDOL-370 100ML BTL INJ ONE (15:10)
[2021-06-05] MEDS ORDERED: ATROPINE SULFATE 0.1 MG/ML 10ML SYRINGE IVP ONE (15:28)
[2021-06-05] MEDS ORDERED: FUROSEMIDE 10 MG/ML 4 ML VIAL IV ONE (15:30)
[2021-06-05] MEDS ORDERED: ONDANSETRON 4 MG/2 ML VIAL IVP ONE (15:30)
[2021-06-05] MEDS ORDERED: DOPamine DRIP 800 MG in DEXTROSE/WATER 1 250ML.BAG IV ONE (15:33)
[2021-06-05] MEDS ORDERED: MAG HYDROX/AL HYDROX/SIMETH 30 ML CUP PO PRN (16:07)
[2021-06-05] MEDS ORDERED: ATROPINE SULFATE 0.1 MG/ML 10ML SYRINGE IV PRN (16:07)
[2021-06-05] MEDS ORDERED: NITROGLYCERIN SL TABS 0.4 MG TAB SUBLINGUAL PRN (16:07)
[2021-06-05] MEDS ORDERED: RX INFO: IV CONTRAST WAS GIVEN 1 EACH MISC MISCELLANE PRN (16:07)
[2021-06-05] MEDS ORDERED: ZOLPIDEM 5 MG TAB PO PRN (16:07)
[2021-06-05] MEDS ORDERED: SODIUM CHLORIDE 0.9% 1,000 ML in EMPTY BAG 1 BAG IV SCH (16:15)
[2021-06-05] MEDS ORDERED: CLOPIDOGREL 75 MG TAB ONE (16:20)
[2021-06-05 16:47] LABS: Glucose,Whole Blood 126 mg/dL (75-99)
[2021-06-05] MEDS: CLOPIDOGREL 75 MG TAB PO SCH (16:50)
[2021-06-05] MEDS: DOPamine DRIP 800 MG in WATER FOR INJECTION 1 250ML.BAG IV SCH (17:00)
--- NOTE | 2021-06-05 17:04 | PTCA ---
PERCUTANEOUSTRANS CORORONARY ANGIOGRAPHY Mr. Wikc is an 81-year-old male with a known history of coronary artery disease, history of hypertension, hyperlipidemia, who recently had a drop in his ejection fraction with evidence of progressive mitral regurgitation. He underwent cardiac catheterization, was found to have severe left main disease involving the left circumflex and the ostium of the LAD. In view of that, he was evaluated by the surgical team and the patient and the surgeon felt that he is very high risk. In view of that, recommendation made regarding angioplasty and stenting of the left anterior descending artery, left main and left circumflex with Impella support. The procedure was discussed with the patient. I discussed with him that the patient is high risk to undergo the procedure and he was in full understanding and agreement. PROCEDURE DESCRIPTION: Patient was brought to the rd lab technician in a fasting semisedated state after receiving fentanyl and Benadryl and achieving moderate conscious sedated state. Using the microcatheter sheath was introduced in the left femoral artery and the right femoral artery. Subsequently, the sheath in the left femoral artery was exchanged to a 13- [place] sheath. Perclose was pre deployed in position at 10 o'clock and 2 o'clock. Subsequently an Impella catheter was introduced, positioned in the left ventricle. After obtaining good parameters, a 7-[place] sheath was introduced in the right femoral artery. Subsequently, attempt to cannulate the left main using a 7-[place] Irish EBU 3.75, 7- [place] XB4 were unsuccessful cannulating the left main. Subsequently, 7-[place] FR4 guiding catheter was introduced into the system. After cannulating the left main, a 0.014 balanced medium weight J-wire was advanced across the lesion, positioned distally. A second wire was advanced into the left circumflex. Subsequently 2.5 x 15 mm NC Trek balloon was advanced and inflation into the LAD wire and the left circumflex wire at maximum of 10 atmospheres were done. Following that, the balloon was removed and an IVUS [place] was introduced and images were obtained. Following that, the IVUS catheter were removed and a 3.5 x 15 mm NC Trek balloon was advanced and inflation into the left main were done at maximum of 10 atmospheres. Following that, the balloon was removed and a 4.0 x 18 mm Xience stent was deployed and post-dilated at 16 atmospheres. Following that, the balloon was removed and the wire of the left circumflex was removed and a 5.0 x 8 mm NC Trek balloon was advanced into the left main and proximal optimization of the stent was done at maximum of 10 atmospheres. Following that, the balloon was removed and the [place] IVUS catheter was introduced and images were obtained again and that showed good position of the stent. At that point, the wire was withdrawn. Images were obtained, repeated. Those images revealed stable successful stenting. At that point, the guiding catheter, the balloon and the guidewire removed. Subsequently, the Impella catheter was withdrawn. Deployment of the two pre close were unsuccessful in obtaining hemostasis. Attempts to deploy an 8- [place] Angio-Seal was unsuccessful. At that point, manual compression was performed and with the assistance of Dr. Smith, a balloon was introduced from the right femoral artery to tamponade the area. After obtaining hemostasis, the balloon was deflated and withdrawn. After maintaining stable hemodynamics, after receiving IV fluid and dopamine, the sheath in the right femoral artery was withdrawn and hemostasis was obtained with deployment of an 8-[place] Angio-Seal. At that point, the patient was returned to his room in stable condition. He had no chest discomfort and he was hemodynamically stable and his IV dopamine was being weaned. He was in sinus mechanism. He received a total of 9000 units of intravenous heparin and was continued on Plavix. He had no chest discomfort. RESULTS: Successful stenting of a heavily calcified distal left main involving the LAD and the proximal left circumflex with reduction of stenosis from 99% to less than 5% with a DISHA-3 flow into the left circumflex. RECOMMENDATIONS: Patient will be continued on aspirin, Plavix, beta celi, and close followup of his LV systolic function as well as renal function will be done. Those findings and recommendations were discussed with the patient and his family, and they are in full understanding and agreement. Duration of sedation is 160 minutes. MMDEBBIE / MAYKELN: [id number] /
[2021-06-05 19:13] LABS: HCT 29.4 % (39.0-53.0); MCH 32.3 pg (25.0-35.0); MCV 95.2 fL (80.0-100.0); Platelet Count 187 k/uL (150-450); RBC 3.09 m/uL (4.30-5.90); WBC 19.4 k/uL (3.8-10.6)
[2021-06-05 19:18] LABS: Calcium 8.9 mg/dL (8.4-10.2)
[2021-06-05 19:25] LABS: Potassium 4.9 mmol/L (3.5-5.1)
[2021-06-06 05:55] LABS: Calcium 8.2 mg/dL (8.4-10.2)
[2021-06-06 06:02] LABS: Potassium 5.4 mmol/L (3.5-5.1)
--- NOTE | 2021-06-06 08:42 | P.PN ---
Progress Note - Text Progress Note Date: 06/06/21 The patient underwent stenting of the left main and the LAD with angioplasty of the ostium of the left circumflex with Impella support. There was initial difficulties controlling the bleeding from the left groin but subsequently stabilized. He is feeling well today, his breathing is stable, he has no chest discomfort and he continues to be in sinus mechanism. He is off dopamine. His urine output is good. He denies any chest discomfort, dizziness or palpitations. He continues to be on aspirin, Lipitor, Coreg 3.125 twice a day and Plavix 75 mg daily. Physical examination 126/50, heart rate in the 60s Lungs clear to auscultation Heart regular rate and rhythm with a holosystolic murmur at the apex radiating to the axilla Abdomen soft nontender, positive bowel sounds Extremities no edema no ecchymosis or hematoma in both groins. Lab showed a hemoglobin of 10, BUN and creatinine of 27 and 1.21. Impression: 1 status post stenting of the left main and the LAD with angioplasty of the ostium of the left circumflex 2. Ischemic cardiomyopathy 3. Moderate mitral regurgitation 4. Chronic kidney disease stable 5. Hyperlipidemia Plan. The patient will be transferred to telemetry floor, his activity will be increased, we will follow his renal functions and if stable he'll be discharged home tomorrow. His left ventricle systolic function and mitral regurgitation will be followed closely. We will hold on adding an CLYDE inhibitor at this time pending stabilization of his renal function and blood pressure.
[2021-06-06] MEDS: carvediloL 3.125 MG TAB PO SCH ×2 (08:45→19:12)
[2021-06-06] MEDS: CITALOPRAM HYDROBROMIDE 20 MG TAB PO SCH (08:45)
[2021-06-06] MEDS: ASPIRIN 81 MG PO SCH (08:45)
[2021-06-06] MEDS: CLOPIDOGREL 75 MG TAB PO SCH (08:45)
[2021-06-06] MEDS: ATORVASTATIN 40 MG TAB PO SCH (08:45)
--- NOTE | 2021-06-06 10:03 | CC ---
06/03/21 (Right and left left heart catheterization) Mr. Wick is an 81-year-old male with a known history of CAD who recently presented with symptoms of progressive dyspnea and was found to have progression of mitral regurgitation and worsening ejection fraction, view that recommendations were made regarding cardiac catheterization. The procedure as well as the risk and the complications were discussed with him and he was in full understanding and agreement. Procedure: Patient was brought to the laborer carpentry dock in the fasting submitted state after receiving fentanyl and Benadryl and achieving moderate conscious sedative state, using Xylocaine anesthesia in the Seldinger technique a 6-American sheath was introduced in the right radial artery subsequently using the guidewire exchange technique the venous sheath in the right basilic vein was exchanged to a 6- American sheath. Subsequently right heart catheterization was performed using a [place] catheter, multiple samples and pressures were calculated. Cardiac output was calculated. Subsequently selective right and left coronary angiography 5-American 4 bend right the left Richa catheter. Subsequently a 6- American tight pigtail catheter was introduced in the left ventricle and pressures were calculated. Following that catheter and sheaths were removed, hemostasis was obtained with deployment of a TR band and compression of the right brachial area. The patient received 4500 unit of intravenous heparin and intra-arterial verapamil, there was no immediate complication. Findings: Hemodynamics: Right atrial saturation 64%, pulmonary artery saturation 63%, arterial saturation 97%. Cardiac output by Minnie 5.2 L/m and by thermal 5.3 L/m. Pulmonary artery systolic pressure 62, diastolic 20 with a mean of 32 millimeter of mercury, pulmonary capillary wedge pressure A wave 28, V wave 40, mean of 24 mmHg, right ventricle systolic of 60, diastolic of 7 mmHg, right atrium A wave of 3, V wave of 6 with a mean of 3 mmHg, left ventricular end-diastolic pressure 16-20 to mercury, gradient across the aortic valve of 21 mmHg, aortic valve area of 1.4 cm. Coronaries: Left main this is a large size vessel, bifurcating into LAD and left circumflex, left main has 95% stenosis distally with haziness and calcifications. LAD: This is a large size vessel, reaching to the apex with a wraparound the apex segment, the stented segment in the proximal LAD is patent the ostium of daily D has 60-70% stenosis, the first diagonal branch has 80-90% stenosis. Left circumflex: This is a nondominant large size vessel giving rise to 2 obtuse marginal branch, the left circumflex ostium has 99% stenosis. RCA: This is a large dominant vessel, bifurcating into PDA and PLV, right coronary artery has 20-30% plaque in the midsegment. Left ventriculogram: Left ventriculogram was not performed. Findings: 1. Severe distal left main disease. 2. Severe ostial left circumflex disease. 3. Severe ostial LAD disease. 4. Mild disease in the RCA. Recommendations: In view of the findings, with the left main disease and severe ostial disease of the LAD and left circumflex, impaired left ventricle systolic function and moderate to severe mitral regurgitation have recommended to proceed with evaluation for CABG and mitral valve repair. Those findings and recommendations were discussed with the patient's and his family and they are in full understanding. The prognosis is guarded. X Duration of sedation 26 minutes. MTDD
[2021-06-06 12:51] VITALS: BMI 27.0
[2021-06-06 13:37] LABS: HCT 27.6 % (39.0-53.0); HGB 9.2 gm/dL (13.0-17.5); Hypochromasia Marked; MCH 34.7 pg (25.0-35.0); MCHC 33.2 g/dL (31.0-37.0); Macrocytosis Moderate; Platelet Count 134 k/uL (150-450); RBC 2.64 m/uL (4.30-5.90); RDW 14.5 % (11.5-15.5); WBC 13.8 k/uL (3.8-10.6)
[2021-06-06 13:40] LABS: MCV 104.6 fL (80.0-100.0)
[2021-06-06] MEDS: SODIUM CHLORIDE 0.9% 1,000 ML in EMPTY BAG 1 BAG IV SCH (18:45)
[2021-06-06] MEDS: ACETAMINOPHEN TAB 325 MG TAB PO PRN (20:18)
[2021-06-06] MEDS: DOPamine DRIP 800 MG in WATER FOR INJECTION 1 250ML.BAG IV SCH (21:19)
[2021-06-07] MEDS: SODIUM CHLORIDE 0.9% 1,000 ML in EMPTY BAG 1 BAG IV SCH (04:33)
[2021-06-07 05:18] VITALS: PULSE 70
[2021-06-07] MEDS: carvediloL 3.125 MG TAB PO SCH (06:40)
[2021-06-07 07:17] LABS: Calcium 8.6 mg/dL (8.4-10.2); Potassium 4.6 mmol/L (3.5-5.1)
[2021-06-07 07:36] LABS: HCT 24.9 % (39.0-53.0); HGB 8.1 gm/dL (13.0-17.5); MCH 31.2 pg (25.0-35.0); MCHC 32.5 g/dL (31.0-37.0); Mean Platelet Volume 7.9; Platelet Count 229 k/uL (150-450); RBC 2.59 m/uL (4.30-5.90); RDW 14.6 % (11.5-15.5)
--- NOTE | 2021-06-07 07:40 | P.PN ---
Progress Note - Text Progress Note Date: 06/07/21 The patient was admitted with symptoms of progressive dyspnea and underwent cardiac catheterization, was found to have severe obstructive disease involving the distal left main, ostial left circumflex and LAD with moderate mitral regurgitation by XOCHILT. He was felt to be a high risk for surgical intervention. He underwent angioplasty and stenting of the left main with Impella support. He's feeling well this morning, ambulating with improvement in his breathing, he denies any chest discomfort, dizziness or palpitations. He continues to be in sinus mechanism. He has no evidence of hematoma on the left and right groin. He'll be discharged home today on aspirin once a day, Lipitor 40 mg daily, Plavix 75 mg daily, Coreg 3.125 mg twice a day, Celexa 20 mg daily, Pamelor 50 mg on a when necessary basis. He'll be followed in the office next week. Discharge diagnosis: 1. Severe CAD. 2. Ischemic cardiomyopathy 3. Mitral regurgitation 4. Hyperlipidemia 5. Chronic kidney disease Procedures: Cardiac catheterization, XOCHILT and stenting of the left main.
[2021-06-07] MEDS: CITALOPRAM HYDROBROMIDE 20 MG TAB PO SCH (08:13)
[2021-06-07] MEDS: CLOPIDOGREL 75 MG TAB PO SCH (08:13)
[2021-06-07] MEDS: ATORVASTATIN 40 MG TAB PO SCH (08:13)
[2021-06-07] MEDS: ASPIRIN 81 MG PO SCH (08:13)
[2021-06-07 08:37] VITALS: BP 92/55; RESP 20; TEMP 97.8
--- NOTE | 2021-06-12 09:25 | P.VSCSTY ---
Greater Saphenous Vein Mapping This is bilateral lower extremity greater saphenous vein mapping. Date of service: 06/03/2021 Vein quality and ultrasound appearance: We see no intraluminal thrombus or obvious wall changes. Vein size groin right : 4.6 x 4.9 groin left: 7.3 x 6.6 High thigh right: 2.8 x 2.1 high thigh left: 3.3 x 2.4 Mid thigh right: 2.6 x 2.8 mid thigh left: 2.8 x 2.3 Above-knee right: 2.8 x 1.9 above-knee left: 2.2 x 1.7 Below knee right: 2.0 x 1.8 below-knee left: 1.6 x 1.3 Mid calf right: 1.8 x 1.4 mid calf left: 1.3 x 1.0 Ankle right: 1.5 x 1.1 ankle left: 1.9 x 1.5 Impression: Probably usable greater saphenous vein in both upper thighs. [place] thigh and above the knee bilaterally probably too small for use as conduit. Clinical correlation recommended..
== END 2021-06-07 12:36 | disposition home or self-care (01) | DRG 217 ==
LOC: CATHCVL 05:58 → 3SCARD 08:23 → CATHCVL 06-04 11:02 → 2SICU 06-05 15:15 → 3SCARD 06-06 18:56
PROVIDERS: ADMIT Internal Medicine Interventional Cardiology; ATTEND Internal Medicine Interventional Cardiology
PROC: 4A023N8 Measurement of Cardiac Sampling and Pressure, Bilateral, Percutaneous Approach (ICD-10-PCS; 2021-06-03)
PROC: B2161ZZ Fluoroscopy of Right and Left Heart using Low Osmolar Contrast (ICD-10-PCS; 2021-06-03)
PROC: B24BZZ4 Ultrasonography of Heart with Aorta, Transesophageal (ICD-10-PCS; 2021-06-03)
PROC: B2111ZZ Fluoroscopy of Multiple Coronary Arteries using Low Osmolar Contrast (ICD-10-PCS; 2021-06-03)
PROC: 02HA3RJ Insertion of Short-term External Heart Assist System into Heart, Intraoperative, Percutaneous Approach (ICD-10-PCS; principal; 2021-06-05 13:30)
PROC: 5A0221D Assistance with Cardiac Output using Impeller Pump, Continuous (ICD-10-PCS; principal; 2021-06-05 13:30)
PROC: 027034Z Dilation of Coronary Artery, One Artery with Drug-eluting Intraluminal Device, Percutaneous Approach (ICD-10-PCS; principal; 2021-06-05 13:30)
DX: I25.10 Atherosclerotic heart disease of native coronary artery without angina pectoris (principal); I50.22 Chronic systolic (congestive) heart failure; I13.0 Hypertensive heart and chronic kidney disease with heart failure and stage 1 through stage 4 chronic kidney disease, or unspecified chronic kidney disease; I08.3 Combined rheumatic disorders of mitral, aortic and tricuspid valves; I25.5 Ischemic cardiomyopathy; E78.5 Hyperlipidemia, unspecified; I27.20 Pulmonary hypertension, unspecified; G89.29 Other chronic pain; G62.9 Polyneuropathy, unspecified; I42.9 Cardiomyopathy, unspecified; M19.90 Unspecified osteoarthritis, unspecified site; M48.00 Spinal stenosis, site unspecified; Z20.822 Contact with and (suspected) exposure to COVID-19; F32.A Depression, unspecified; N18.9 Chronic kidney disease, unspecified; I70.229 Atherosclerosis of native arteries of extremities with rest pain, unspecified extremity; Z79.02 Long term (current) use of antithrombotics/antiplatelets; Z79.82 Long term (current) use of aspirin; Z79.899 Other long term (current) drug therapy; Z80.1 Family history of malignant neoplasm of trachea, bronchus and lung; Z80.3 Family history of malignant neoplasm of breast; Z82.49 Family history of ischemic heart disease and other diseases of the circulatory system; Z86.73 Personal history of transient ischemic attack (TIA), and cerebral infarction without residual deficits; Z87.891 Personal history of nicotine dependence; Z90.89 Acquired absence of other organs; Z98.890 Other specified postprocedural states; G43.909 Migraine, unspecified, not intractable, without status migrainosus; Z98.42 Cataract extraction status, left eye; Z98.41 Cataract extraction status, right eye; Z95.5 Presence of coronary angioplasty implant and graft
CPT/HCPCS: 71046; 80048; 80053; 80061; 80074; 81003; 82810; 83036; 83735; 84443; 85018; 85025; 85027; 85610; 85730; 87635; 92978; 93312; 93320; 93325; 93460; 93880; 93970; 94150

== ENCOUNTER 2021-10-10 07:02 | Day surgery (SDC) | payer MEDICARE, BC ==
[~2021-10-10 07:02] MED LIST changes: -ALPRAZolam 0.25 MG TAB PO PRN; -ALPRAZolam 0.5 MG TAB PO PRN; -ASPIRIN 325 MG TAB PO STA; -ATORVASTATIN 80 MG TAB PO STA; -HEPARIN SODIUM,PORCINE 10,000 UNIT in SODIUM CHLORIDE 0.9% 1,000 ML IRRIGATION PRN; -HEPARIN SODIUM,PORCINE 2,500 UNIT in SODIUM CHLORIDE 0.9% 250 ML IRRIGATION PRN; -NITROGLYCERIN SL TABS 0.4 MG TAB SUBLINGUAL PRN; +SODIUM CHLORIDE 0.9% 1,000 ML IV SCH; +ceFAZolin 1 GM in SODIUM CHLORIDE 0.9% IRRIG BTL 250 ML IRRIGATION PRN
[2021-10-10] MEDS ORDERED: MIDAZOLAM 2 MG/2 ML VIAL ONE (08:21)
[2021-10-10] MEDS ORDERED: PROPOFOL 10 MG/ML 20 ML VIAL IV ONE (08:21)
[2021-10-10] MEDS ORDERED: fentaNYL (PF) 50 MCG/ML 2 ML AMP ONE (08:21)
[2021-10-10] MEDS ORDERED: IV FLUID CONTINUATION 1,000 ML IV ONE (08:26)
[2021-10-10] MEDS ORDERED: SODIUM CHLORIDE 0.9% 500 ML 500 ML IV ONE (08:30)
[2021-10-10] MEDS ORDERED: IOPAMIDOL-370 50ML BTL INJ ONE (08:44)
[2021-10-10] MEDS ORDERED: LIDOCAINE 1% INJ 10MG/ML (30 ML VIAL-PF) SQ ONE (09:19)
[2021-10-10] MEDS ORDERED: NORTRIPTYLINE 25 MG CAP PO PRN (13:09)
--- NOTE | 2021-10-10 14:54 | P.EPPROC ---
- EP Procedure Note Electrophysiology Procedure Note: Diagnosis Bradycardia, standard pacemaker will result in RV pacing >40% Chronotropic incompetence, AV node disease left bundle branch block, QRS width 155 ms Heart failure symptoms on account of this Procedure LB/ biventricular pacemaker implantation Details Patient was brought to the EP lab in a fasting state. Written informed consent was obtained prior to the procedure. Conscious sedation provided by anesthesia team IV antibiotics administered. Local anesthesia administered. A 4 cm incision made in the pectoral area. Subfascial pocket made. Venous access obtained Venous sheaths placed. Leads placed in the right heart Atrial lead position the right atrial appendage. Metronic 52 cm model #5076, active fix lead P waves 3.6V impedance 456 ohms pacing threshold 0.5 V at 0.4 ms RV lead position in the RV apex. Active fix lead Model #5076, 50 cm length During implantation patient went to complete heart block and did not improve No R waves, therefore backup RV pacing performed from the RV apex Pacing threshold 0.5 V at 0.4 ms and pacing impedance 741 ohms His bundle mapping was performed. Selective His bundle capture but without correction of the left bundle branch block Left bundle mapping performed Successful capture of the left bundle While complete loss of capture with a right bundle branch block morphology QRS was 0.75 V at 0.5 ms, True Right bundle capture which resulted in shortening of the time to peak R wave in V6 lead = 2.25-2.5V at 0.5 minutes Very stable LB position Sheaths removed successfully In the LV septum stim to peak R wave in lead V6 was about 112 ms During left bundle pacing, stim to peak R wave in lead V6 was 88 ms Biventricular pacemaker device connected to the leads and placed in the subfascial pocket tyrx pouch placed Device programmed unipolar left bundle pacing, AV sequential with a backup RV pacing with rate responsiveness DDDR 50-120 bpm Paced AV delay 1:30 milliseconds Patient tolerated the procedure well without acute complications
--- NOTE | 2021-10-10 14:54 | P.PRLE ---
RE: Hrerera Wick Jr Dear Dr. Jany Silverman underwent biventricular pacing with conduction system pacing The third lead was screwed into the left bundle to allow for uniform and synchronous LV contraction and relaxation He also has sick sinus syndrome and chronotropic incompetence as well as AV block with an underlying left bundle branch block hopefully this resulted in improvement in his heart failure symptoms He tolerated the procedure well without any acute complications He will continue to follow with you and Dr. Guzmán as before Thank you for entrusting me with the care of the patient Warm regards Sincerely Murali Segura
--- NOTE | 2021-10-10 14:55 | P.PCN ---
Preoperative Diagnosis: Left upper extremity venogram Sincerely dye injection of the left arm Patent left subclavian venous system Plan proceed with permanent ventricular pacemaker implantation Extended procedure duration This wasn't enlarged right ventricle with TR First the His bundle was mapped and tagged Subsequently the left bundle mapping was performed The sheath was unstable in the right ventricle and therefore multiple attempts were made for a stable septal position was obtained Detailed mapping was performed just below the His bundle area A W-shaped paced QRS pattern in lead V1 were sought Once this was obtained the lead was screwed in into the septum Impedance monitoring was performed The impedance was from 600 to about 900 Finally when a right bundle branch block morphology was noted, there was a drop in the impedance Excellent left bundle thresholds were noted Shortening of the time to peak of V6 was noted. This was about 88-96 ms Left bundle mapping. The longest time in view of the size of the right ventricle and instability of the sheath
[2021-10-10] MEDS: carvediloL 3.125 MG TAB PO SCH (17:45)
--- NOTE | 2021-10-10 19:05 | XR ---
EXAMINATION TYPE: XR chest 1V portable DATE OF EXAM: 10/10/2021 6:08 PM COMPARISON: Chest radiographs from 06/03/2021 TECHNIQUE: XR chest 1V portable Frontal view of the chest. CLINICAL INDICATION:Male, 81 years old with history of Lead placement check; FINDINGS: Lungs/Pleura: Low lung volumes are present. There is no evidence of pleural effusion, focal consolida tion, or pneumothorax. Pulmonary vascularity: Unremarkable. Heart/mediastinum: Cardiomediastinal silhouette is enlarged and stable. Three lead cardiac conduction device overlying the left hemithorax with lead tips projecting over the right ventricle, right atriu m and coronary sinus. Musculoskeletal: No acute osseous pathology. IMPRESSION: No acute cardiopulmonary disease/process.
[2021-10-11] MEDS: carvediloL 3.125 MG TAB PO SCH (07:53)
[2021-10-11 08:31] VITALS: BP 154/79; PULSE 64; RESP 12; TEMP 97.8
[2021-10-11] MEDS ORDERED: ASPIRIN 81 MG PO SCH (09:00)
[2021-10-11] MEDS ORDERED: ATORVASTATIN 40 MG TAB PO SCH (09:00)
[2021-10-11] MEDS ORDERED: CLOPIDOGREL 75 MG TAB PO SCH (09:00)
[2021-10-11] MEDS ORDERED: FUROSEMIDE 20 MG TAB PO SCH (09:00)
--- NOTE | 2021-10-11 10:06 | DS ---
DISCHARGE SUMMARY Mr. Wick has sick sinus syndrome, AV node disease, AV block, left bundle branch block, and underwent biventricular pacemaker yesterday. The LV port is connected to a lead in the left bundle. He has mild soreness in the pacemaker area with minimal soakage. No hematoma. Heart sounds S1, S2 are normal. There is a systolic murmur audible. Lungs are clear. Extremities are warm. No JVD. IMPRESSION: His symptoms are tiredness, fatigue with underlying left bundle branch block, tendency for AV block and sick sinus syndrome, status post biventricular pacemaker implantation with left bundle pacing. PLAN: Discharge home today. Continue all medications as before and pacemaker interrogation today. His chest x-ray shows that the atrial lead, left bundle lead and the RV lead are in excellent position. MMODL / IJN: [id number] /
== END 2021-10-11 11:57 | disposition home or self-care (01) ==
LOC: CATHEP 07:02 → UNDOADMIN 12:39 → 6NMEDSUR 12:39 → CATHEP 10-11 11:57 → UNDODISIN 10-11 11:57
PROVIDERS: ATTEND Internal Medicine Clinical Cardiac Electrophysiology
DX: R00.1 Bradycardia, unspecified (principal); I44.7 Left bundle-branch block, unspecified; I50.9 Heart failure, unspecified; I25.5 Ischemic cardiomyopathy; Z95.5 Presence of coronary angioplasty implant and graft; Z20.822 Contact with and (suspected) exposure to COVID-19; I08.3 Combined rheumatic disorders of mitral, aortic and tricuspid valves; I49.5 Sick sinus syndrome; I10 Essential (primary) hypertension; E11.51 Type 2 diabetes mellitus with diabetic peripheral angiopathy without gangrene; Z82.49 Family history of ischemic heart disease and other diseases of the circulatory system; I25.10 Atherosclerotic heart disease of native coronary artery without angina pectoris; Z87.891 Personal history of nicotine dependence; F32.A Depression, unspecified; G43.909 Migraine, unspecified, not intractable, without status migrainosus; Z97.2 Presence of dental prosthetic device (complete) (partial); Z79.02 Long term (current) use of antithrombotics/antiplatelets; Z79.82 Long term (current) use of aspirin; Z79.899 Other long term (current) drug therapy
CPT/HCPCS: 33208; 80051; 82565; 84520; 85027; 87635; 71045; C1769 ×4; C1887; C1892; C1898; C2621; J2250; J0690; J2001; J3010; J2704; Q9967